=== PATIENT | male | born 1960 | race Caucasian/White ===

== ENCOUNTER 2019-12-06 22:06 | Emergency (ER) | payer OTHER, BC ==
[~2019-12-06] VITALS: Ht 175.3 cm; Wt 83.9 kg
[2019-12-06 22:20] VITALS: BP 155/88
--- NOTE | 2019-12-06 22:20 | NUR ---
ED Nurse Note: Pt walked into ED for c/o R hand swelling onset at 1200 today. Pt states he was at work and noticed the swelling. Pt denies any injury or trauma to the hand. Pt believes he may have been bitten by an insect. Swelling and redness noted to R hand, no open wound. Pt is aaox4, breathing is normal and unlabored, no cardiac distress.
[2019-12-06] MEDS ORDERED: Acetaminophen 500mg (ES) tab ORAL ONE ×2 (22:30→22:34)
[2019-12-06] MEDS ORDERED: Cephalexin 500mg cap ORAL ONE (22:30)
[2019-12-06] MEDS ORDERED: CEPHALEXIN500 MG ORAL (22:37)
[2019-12-06] MEDS ORDERED: TYLENOL EXTRA500 MG ORAL (22:37)
[2019-12-06 22:55] VITALS: BP 148/82
--- NOTE | 2019-12-06 22:55 | NUR ---
ER DISCHARGE NOTE: Patient is cleared to be discharged per ERMD, pt is aox4, on room air, with stable vital signs. pt was given dc and prescription instructions, pt was able to verbalize understanding, pt id band removed. pt is able to ambulate with steady gait. pt took all belongings.
--- NOTE | 2019-12-07 02:16 | Emergency Room Report ---
History of Present Illness General Chief Complaint: Allergic Reaction Source: Patient Present Illness HPI 59-year-old male presents the ED complaining of swelling to his right hand. Happened today at work. Believes an insect bit him. Pain is dull, 5 out of 10 , nonradiating. Feels warmth to the hand. Notes swelling. Denies fevers or chills. Denies any fall or injury. No other aggravating relieving factors. Denies any other associated symptoms Allergies: Coded Allergies: PENICILLINS (Verified Allergy, Unknown, 12/06/19) SULFA (SULFONAMIDE ANTIBIOTICS) (Verified Allergy, Unknown, 12/06/19) SULFAMETHOXAZOLE (Verified Allergy, Unknown, 12/06/19) TRIMETHOPRIM (Verified Allergy, Unknown, 12/06/19) COVID-19 Screening Contact w/high risk pt: No Recent Travel to affected area: No Experienced COVID-19 symptoms?: No COVID-19 Testing performed HEALTH CONCIERGE: No Patient History Past Medical History: none Past Surgical History: none Pertinent Family History: none Social History: Denies: smoking, alcohol use, drug use Immunizations: UTD Reviewed Nursing Documentation: PMH: Agreed; PSxH: Agreed Nursing Documentation-PMH Past Medical History: No Stated History Review of Systems All Other Systems: negative except mentioned in HPI Physical Exam Vital Signs Date Time Temp Pulse Resp B/P (MAP) Pulse Ox O2 Delivery O2 Flow Rate FiO2 12/06/19 22:09 98.2 93 18 155/88 (110) 95 12/06/19 22:20 Room Air Sp02 EP Interpretation: reviewed, normal General Appearance: no apparent distress, alert, GCS 15, non-toxic Head: normocephalic Eyes: bilateral eye normal inspection, bilateral eye PERRL ENT: normal ENT inspection Neck: normal inspection Respiratory: normal inspection Cardiovascular #1: normal inspection Gastrointestinal: normal inspection Rectal: deferred Genitourinary: no CVA tenderness Musculoskeletal: normal range of motion, swelling - erythema/swelling to dorsum R hand Neurologic: alert, motor strength/tone normal, oriented x3, sensory intact, responsive, speech normal Psychiatric: judgement/insight normal, memory normal, mood/affect normal, no suicidal/homicidal ideation Skin: no rash Lymphatic: normal inspection Medical Decision Making Diagnostic Impression: Primary Impression: Insect bite Qualified Codes: S60.561A - Insect bite (nonvenomous) of right hand, initial encounter; W57.XXXA - Bitten or stung by nonvenomous insect and other nonvenomous arthropods, initial encounter ER Course Hospital Course 59-year-old male presents to ED with redness, swelling to right hand Differential diagnoses include: Cellulitis, dermatitis, insect bite, abscess Clinical course Patient placed on stretcher. After initial history, physical exam reveals a male in no acute distress. On exam there is erythema/swelling to dorsum R hand. There is no fluctuance. There is no tenderness. Full range of motion is noted in the right hand. I discussed findings with patient. Vitals stable. Afebrile. Nontoxic- appearing. Will discharge with antibiotics. Warm compresses. Given Tylenol and Keflex in ED. Safe for discharge close outpatient follow-up. I will provide referrals Diagnosis - insect bite stable and discharged to home with prescription for Keflex. Instructed to followup with PMD. Instructed return to ED if symptoms recur or worsen Last Vital Signs Date Time Temp Pulse Resp B/P (MAP) Pulse Ox O2 Delivery O2 Flow Rate FiO2 12/06/19 22:55 98.2 91 18 148/82 98 Room Air Status: improved Disposition: HOME, SELF-CARE Condition: Stable Scripts Cephalexin* (KEFLEX*) 500 Mg Capsule 500 MG ORAL EVERY 6 HOURS for 7 Days, CAP Prov: Bradley Dill MD 12/06/19 Acetaminophen* (TYLENOL EXTRA STRENGTH*) 500 Mg Tablet 500 MG ORAL Q8H PRN for Prn Headache/Temp > 101, #30 TAB 0 Refills Prov: Bradley Dill MD 12/06/19 Referrals: NON PHYSICIAN (PCP) Raghu Arellano [facility] Departure Forms: Return to Work Return to Work Date: Dec 07, 2019 Work Restrictions: No Heavy Lifting Patient Instructions: Insect Bite, [id number] Additional Instructions: warm compresses. take antibiotics as directed. followup with your doctor Bradley Dill MD Dec 07, 2019 02:16
== END 2019-12-06 22:55 | disposition home or self-care (01) ==
LOC: EMR 22:30
DX: S60.561A Insect bite (nonvenomous) of right hand, initial encounter (principal); W57.XXXA Bitten or stung by nonvenomous insect and other nonvenomous arthropods, initial encounter; Z88.0 Allergy status to penicillin; Z88.2 Allergy status to sulfonamides; Z88.8 Allergy status to other drugs, medicaments and biological substances
CPT/HCPCS: 99282

== ENCOUNTER 2019-12-31 18:29 | Inpatient (IN) | payer BC, OTHER ==
[~2019-12-31] VITALS: Ht 175.3 cm; Wt 83.9 kg
[~2019-12-31 18:29] MED LIST: CEPHALEXIN500 MG ORAL; TYLENOL EXTRA500 MG ORAL
[2019-12-31 18:50] VITALS: BP 94/73
--- NOTE | 2019-12-31 18:53 | NUR ---
ED Nurse Note: Patient walked into ER from home c/o lower abdominal pain and unable to void and unable to have bowel movement starting today. Patient denies any nausea and vomiting. Patient presented AAO x4, VSS at this time, skin is warm to touch. patient has distended bladder.
[2019-12-31] MEDS ORDERED: Morphine Sulfate 4mg/ml Inj (IV USE ONLY) IVP ONE (19:00)
[2019-12-31] MEDS ORDERED: Omnipaque-300 100ml vial INJ PRN (19:00)
--- NOTE | 2019-12-31 19:10 | NUR ---
ED Nurse Note: iv line initiated, blood sent to lab. Pt unable to provide UA at this time. Pt requests to wait to see if pt can urinate on his own before taking further measures. GIANNA aware and approved.
--- NOTE | 2019-12-31 19:30 | NUR ---
ED Nurse Note: all medications administered, pt tolerated well no ss of distress noted. will continue to monitor.
--- NOTE | 2019-12-31 19:40 | Emergency Room Report ---
History of Present Illness General Chief Complaint: Abdominal Pain Source: Patient Present Illness HPI 59-year-old male complaining of abdominal pain. Started yesterday. States he feels constipated. Pain is dull, 8 out of 10 but nonradiating. Also states he is having trouble urinating. Status post TURP several years ago. Denies fevers or chills. Denies flank pain. Denies nausea or vomiting. No other aggravating relieving factors. Denies any other associated symptoms Allergies: Coded Allergies: PENICILLINS (Verified Allergy, Unknown, 12/06/19) SULFA (SULFONAMIDE ANTIBIOTICS) (Verified Allergy, Unknown, 12/06/19) COVID-19 Screening Contact w/high risk pt: No Recent Travel to affected area: No Experienced COVID-19 symptoms?: No COVID-19 Testing performed [employer]OPMENT INTERN: No Patient History Past Medical History: other Past Surgical History: other - TURP Pertinent Family History: none Social History: Denies: smoking, alcohol use, drug use Immunizations: UTD Reviewed Nursing Documentation: PMH: Agreed; PSxH: Agreed Nursing Documentation-PMH Hx Cardiac Problems: Yes - stents placement prostectomy Hx Hypertension: No Hx Asthma: No Hx COPD: No Review of Systems All Other Systems: negative except mentioned in HPI Physical Exam Vital Signs Date Time Temp Pulse Resp B/P (MAP) Pulse Ox O2 Delivery O2 Flow Rate FiO2 12/31/19 18:38 97.5 92 18 94/73 (80) 99 Room Air Sp02 EP Interpretation: reviewed, normal General Appearance: no apparent distress, alert, GCS 15, non-toxic Head: normocephalic, atraumatic Eyes: bilateral eye normal inspection, bilateral eye PERRL ENT: hearing grossly normal, normal pharynx, no angioedema, normal voice Neck: full range of motion, supple/symm/no masses Respiratory: chest non-tender, lungs clear, normal breath sounds, speaking full sentences Cardiovascular #1: regular rate, rhythm, no edema Cardiovascular #2: 2+ carotid (R), 2+ carotid (L), 2+ radial (R), 2+ radial (L) , 2+ dorsalis pedis (R), 2+ dorsalis pedis (L) Gastrointestinal: normal bowel sounds, soft, non-distended, no guarding, no rebound, tenderness Rectal: deferred Genitourinary: normal inspection, no CVA tenderness Musculoskeletal: back normal, normal range of motion, gait/station normal, non- tender Neurologic: alert, motor strength/tone normal, oriented x3, sensory intact, responsive, speech normal Psychiatric: judgement/insight normal, memory normal, mood/affect normal, no suicidal/homicidal ideation Reflexes: 3+ bicep (R), 3+ bicep (L), 3+ tricep (R), 3+ tricep (L), 3+ knee (R) , 3+ knee (L) Skin: no rash Lymphatic: no adenopathy Medical Decision Making Diagnostic Impression: Primary Impression: Colitis Additional Impressions: Constipation Qualified Codes: K59.00 - Constipation, unspecified Urinary retention ER Course Hospital Course 59 yoM presents with abd pain. no BM. unable to urinate differential - urinary retnion, constipation, SBO Clinical course. After initial history and physical I ordered labs, IV fluids, CT, pain meds Labs - no leukocytosis, Hb/Hct stable. electrolytes ok. CT A/P - fecal impaction, stercoral colitis noted Patient had significant urine output after straight cath. Declined Painting catheter. Discussed with surgery. Colitis secondary to fecal impaction is prone to possible perforation. Patient would benefit from admission and observation. Patient agrees. Patient given antibiotics. Given IV fluids. Given stool softeners. Dr Alberto will consult Case discussed with Dr. Armijo and he agreed to accept the patient to his service for further care and support I feel this is a highly complex case requiring extensive working including EKG/ Rhythm strip, Xray/CT/US, Blood/urine lab work, repeat exams while in ED, and administration of strong opiates/narcotics for pain control, admission to hospital or close patient follow up. Diagnosis - colitis, constiopation, urinary retention Patient admitted to hospital in serious condition Labs Test 12/31/19 19:10 12/31/19 21:18 White Blood Count 8.6 K/UL (4.8-10.8) Red Blood Count 4.68 M/UL (4.70-6.10) Hemoglobin 13.7 G/DL (14.2-18.0) Hematocrit 41.1 % (42.0-52.0) Mean Corpuscular Volume 88 FL (80-99) Mean Corpuscular Hemoglobin 29.2 PG (27.0-31.0) Mean Corpuscular Hemoglobin Concent 33.2 G/DL (32.0-36.0) Red Cell Distribution Width 13.4 % (11.6-14.8) Platelet Count 221 K/UL (150-450) Mean Platelet Volume 7.0 FL (6.5-10.1) Neutrophils (%) (Auto) 71.2 % (45.0-75.0) Lymphocytes (%) (Auto) 12.4 % (20.0-45.0) Monocytes (%) (Auto) 5.2 % (1.0-10.0) Eosinophils (%) (Auto) 10.3 % (0.0-3.0) Basophils (%) (Auto) 1.0 % (0.0-2.0) Sodium Level 138 MMOL/L (136-145) Potassium Level 4.4 MMOL/L (3.5-5.1) Chloride Level 102 MMOL/L (98-107) Carbon Dioxide Level 25 MMOL/L (21-32) Anion Gap 11 mmol/L (5-15) Blood Urea Nitrogen 13 mg/dL (7-18) Creatinine 1.5 MG/DL (0.55-1.30) Estimat Glomerular Filtration Rate 47.9 mL/min (>60) Glucose Level 161 MG/DL (74-106) Calcium Level 9.0 MG/DL (8.5-10.1) Total Bilirubin 0.3 MG/DL (0.2-1.0) Aspartate Amino Transf (AST/SGOT) 45 U/L (15-37) Alanine Aminotransferase (ALT/SGPT) 57 U/L (12-78) Alkaline Phosphatase 136 U/L (46-116) Total Protein 8.0 G/DL (6.4-8.2) Albumin 3.7 G/DL (3.4-5.0) Globulin 4.3 g/dL Albumin/Globulin Ratio 0.9 (1.0-2.7) Lipase 129 U/L (73-393) Urine Color Pale yellow Urine Appearance Clear Urine pH 6 (4.5-8.0) Urine Specific Llewellyn 1.015 (1.005-1.035) Urine Protein Negative (NEGATIVE) Urine Glucose (UA) Negative (NEGATIVE) Urine Ketones Negative (NEGATIVE) Urine Blood Negative (NEGATIVE) Urine Nitrite Negative (NEGATIVE) Urine Bilirubin Negative (NEGATIVE) Urine Urobilinogen Normal MG/DL (0.0-1.0) Urine Leukocyte Esterase Negative (NEGATIVE) CT/MRI/US Diagnostic Results CT/MRI/US Diagnostic Results : Imaging Test Ordered: CT A/P Impression Procedure: CT Abdomen Pelvis w/Contrast EXAM: CT Abdomen and Pelvis With Intravenous Contrast CLINICAL HISTORY: ABD PAIN TECHNIQUE: Axial computed tomography images of the abdomen and pelvis with intravenous contrast. CTDI is 7.7 mGy and DLP is 420 mGy-cm. One or more of the following dose reduction techniques were used: automated exposure control, adjustment of the mA and/or kV according to patient size, use of iterative reconstruction technique. COMPARISON: No relevant prior studies available. FINDINGS: Lung bases: Unremarkable. ABDOMEN: Liver: Unremarkable. Gallbladder and bile ducts: Unremarkable. Pancreas: Unremarkable. Spleen: Unremarkable. Adrenals: Unremarkable. Kidneys and ureters: Unremarkable. No obstructing stones. No hydronephrosis. Stomach and bowel: Impacted stool within the rectum and sigmoid colon measuring 6.5 cm in transverse dimension with mild adjacent fat stranding consistent with mild stercoral colitis. No pneumatosis or adjacent fluid collection. PELVIS: Appendix: No findings to suggest acute appendicitis. Bladder: Unremarkable. Reproductive: Unremarkable as visualized. ABDOMEN and PELVIS: Intraperitoneal space: Unremarkable. No free air. No significant fluid collection. Bones/joints: No acute fracture. Soft tissues: Unremarkable. Vasculature: Unremarkable. Lymph nodes: Unremarkable. IMPRESSION: Impacted stool within the rectum and sigmoid colon with mild stercoral colitis. Last Vital Signs Date Time Temp Pulse Resp B/P (MAP) Pulse Ox O2 Delivery O2 Flow Rate FiO2 12/31/19 18:50 97.5 18 94/73 99 Room Air 12/31/19 18:50 92 Status: improved Disposition: ADMITTED INPATIENT Condition: Serious Referrals: NOT CHOSEN IPA/,REFERRING (PCP) Bradley Dill MD Dec 31, 2019 19:40
--- NOTE | 2019-12-31 19:53 | NUR ---
ED Nurse Note: pt attempting to provide UA sample. Pt assisted to restroom. Pt refused use of urinal or bedside commode. Pt ambulates with steady gait, no ss of distress noted. will continue to monitor.
--- NOTE | 2019-12-31 20:00 | NUR ---
ED Nurse Note: pt unable to provide UA. pt stated that he expelled some diarrhea but stated that the amount was very little. Pt stated that he felt some relief in abdomen afterwards. pt assisted back to bed. VSS, will continue to monitor.
[2019-12-31 20:01] LABS: ANION GAP 11 mmol/L (5-15); BLOOD UREA NITROGEN 13 mg/dL (7-18); CARBON DIOXIDE 25 MMOL/L (21-32); CHLORIDE 102 MMOL/L (98-107); CREATININE 1.5 MG/DL (0.55-1.30); POTASSIUM 4.4 MMOL/L (3.5-5.1); SODIUM 138 MMOL/L (136-145)
[2019-12-31 20:03] LABS: EOSINOPHILS % (AUTO) 10.3 % (0.0-3.0); HEMATOCRIT 41.1 % (42.0-52.0); HEMOGLOBIN 13.7 G/DL (14.2-18.0); LYMPHOCYTES % (AUTO) 12.4 % (20.0-45.0); MEAN CORPUSCULAR VOLUME 88 FL (80-99); MONOCYTES % (AUTO) 5.2 % (1.0-10.0); NEUTROPHILS % (AUTO) 71.2 % (45.0-75.0); PLATELET COUNT 221 K/UL (150-450); RED BLOOD COUNT 4.68 M/UL (4.70-6.10); RED CELL DISTRIBUTION WIDTH 13.4 % (11.6-14.8); WHITE BLOOD COUNT 8.6 K/UL (4.8-10.8)
[2019-12-31 20:05] LABS: ALANINE AMINOTRANSFERASE 57 U/L (12-78); ALBUMIN 3.7 G/DL (3.4-5.0); ALBUMIN/GLOBULIN RATIO 0.9 (1.0-2.7); ALKALINE PHOSPHATASE 136 U/L (46-116); ASPARTATE AMINO TRANSFERASE 45 U/L (15-37); BILIRUBIN,TOTAL 0.3 MG/DL (0.2-1.0)
--- NOTE | 2019-12-31 20:10 | NUR ---
ED Nurse Note: Pt taken down to CT. Consent signed. Pt in stable condition, VSS no ss of distress noted.
--- NOTE | 2019-12-31 20:24 | NUR ---
ED Nurse Note: pt returned frmo CT in stable condition. will continue to monitor.
[2019-12-31 20:33] VITALS: BP 156/60
--- NOTE | 2019-12-31 20:46 | Diagnostic Imaging Report ---
EXAM: CT Abdomen and Pelvis With Intravenous Contrast CLINICAL HISTORY: ABD PAIN TECHNIQUE: Axial computed tomography images of the abdomen and pelvis with intravenous contrast. CTDI is 7.7 mGy and DLP is 420 mGy-cm. One or more of the following dose reduction techniques were used: automated exposure control, adjustment of the mA and/or kV according to patient size, use of iterative reconstruction technique. COMPARISON: No relevant prior studies available. FINDINGS: Lung bases: Unremarkable. ABDOMEN: Liver: Unremarkable. Gallbladder and bile ducts: Unremarkable. Pancreas: Unremarkable. Spleen: Unremarkable. Adrenals: Unremarkable. Kidneys and ureters: Unremarkable. No obstructing stones. No hydronephrosis. Stomach and bowel: Impacted stool within the rectum and sigmoid colon measuring 6.5 cm in transverse dimension with mild adjacent fat stranding consistent with mild stercoral colitis. No pneumatosis or adjacent fluid collection. PELVIS: Appendix: No findings to suggest acute appendicitis. Bladder: Unremarkable. Reproductive: Unremarkable as visualized. ABDOMEN and PELVIS: Intraperitoneal space: Unremarkable. No free air. No significant fluid collection. Bones/joints: No acute fracture. Soft tissues: Unremarkable. Vasculature: Unremarkable. Lymph nodes: Unremarkable. IMPRESSION: Impacted stool within the rectum and sigmoid colon with mild stercoral colitis.
--- NOTE | 2019-12-31 21:00 | NUR ---
ED Nurse Note: pt refused matthews catheter and nurse assistance. pt requested straight catheter self placement. Nurse present during pt insertion of straight catheter. 600ml of urine removed. Pt tolerated well no ss of distress noted. Pt stated that pain decreased from 8/10 to 5/10 with significant relief. Will continue to monitor.
[2019-12-31] MEDS ORDERED: Ketorolac 30mg Inj IV ONE (21:15)
[2019-12-31] MEDS ORDERED: Docusate 100mg cap ORAL ONE (21:15)
[2019-12-31 21:43] LABS: APPEARANCE,URINE CLEAR; BILIRUBIN, URINE NEGATIVE (NEGATIVE); COLOR,URINE PALE YELLOW; GLUCOSE, URINE (UA) NEGATIVE (NEGATIVE); KETONES,URINE NEGATIVE (NEGATIVE); LEUKOCYTE ESTERASE ,URINE NEGATIVE (NEGATIVE); NITRITE,URINE NEGATIVE (NEGATIVE); PH,URINE 6 (4.5-8.0); PROTEIN,URINE NEGATIVE (NEGATIVE); UROBILINOGEN,URINE NORMAL MG/DL (0.0-1.0)
--- NOTE | 2019-12-31 22:17 | NUR ---
ED Nurse Note: pt sleeping in bed. vss no ss of distress noted. will continue to monitor.
[2019-12-31 22:50] VITALS: BP 135/72
[2019-12-31 23:44] VITALS: BP 135/88
--- NOTE | 2019-12-31 23:44 | NUR ---
NURSE NOTES: Received telephone report from PINEDA Gavin (ED).
--- NOTE | 2019-12-31 23:44 | NUR ---
ED Nurse Note: Report given to PINEDA Chance on MS unit.
--- NOTE | 2020-01-01 | NUR ---
NURSE NOTES: Received pt via gurney from ED. Pt a&ox4, in room air, ambulatory, no s/s of acute distress & c/o 5/10 pain. Pt belongings checked & accounted for. Counted pt's maldonado in front of pt & witnessed by Rahul charge nurse. Pt declined to send maldonado to hospital safe. Oriented pt to hospital room. IV site intact & flushed. Provided pt with supplies. Pt unable to recall list of meds, asked pt to have someone bring or send a list of his meds from home & pt agreed. VSS. Will call Dr. Armijo for admission orders. Bed in lowest position, call light within reach. Will continue to monitor.
--- NOTE | 2020-01-01 | NUR ---
ER DISCHARGE NOTE: Patient is cleared to be discharged to MS unit per ERMD, pt is aox4, 99%on room air, with stable vital signs. pt was given dc instructions, pt was able to verbalize understanding, pt id band removed. pt is able to ambulate with steady gait. pt took all belongings. Report given to PINEDA Chance on MS unit. Pt transferred to MS unit with 1 DOLL WIG HACKLER.
[2020-01-01 00:30] VITALS: BP 130/87
--- NOTE | 2020-01-01 00:44 | NUR ---
NURSE NOTES: Dr. Armijo called back with admission orders. Carried out.
[2020-01-01] MEDS ORDERED: Lactulose 20gm/30ml UDC ORAL SCH (01:00)
[2020-01-01] MEDS ORDERED: Ketorolac 30mg Inj IM PRN (01:15)
[2020-01-01] MEDS: Lactulose 20gm/30ml UDC ORAL SCH ×3 (01:45→09:18)
[2020-01-01] MEDS ORDERED: Ketorolac 30mg Inj IV PRN (01:53)
[2020-01-01 04:00] VITALS: BP 110/77
--- NOTE | 2020-01-01 07:30 | NUR ---
NURSE NOTES: Received report from Meron RN. Patient is asleep during rounds, in no apparent distress, RR even and unlabored. Side rails upx2, bed low and locked, call light within reach.
--- NOTE | 2020-01-01 07:32 | NUR ---
HAND-OFF: Report given to PINEDA Cervantes & PINEDA Mckinley. Pt in stable condition.
[2020-01-01 08:00] VITALS: BP 135/77
[2020-01-01] MEDS ORDERED: 1/2 NS 1000ml IV ONE (08:43)
--- NOTE | 2020-01-01 11:09 | NUR ---
NURSE NOTES: Discharge order received by Dr. Armijo, reviewed home medications with MD and MD ordered to continue all home medications.
--- NOTE | 2020-01-01 11:15 | General Progress Note ---
Progress Note Progress Note [id number] Indiana Armijo MD Jan 01, 2020 11:15
[2020-01-01 12:00] VITALS: BP 131/88
--- NOTE | 2020-01-01 12:04 | NUR ---
NURSE NOTES: Seen and evaluated by and cleared to discharge. Order noted and carried out.
--- NOTE | 2020-01-01 12:28 | NUR ---
NURSE NOTES: Patient discharged in no distress. IV removed intact. Patient provided with discharge education and verbalized understanding of education. All belongings with patient on discharge. Patient escorted to private vehicle, ID band removed.
--- NOTE | 2020-01-01 14:02 | Consultation ---
History of Present Illness General Date patient seen: Jan 01, 2020 Reason for Hospitalization: Abdominal Pain Present Illness HPI 59-year-old male complaining of abdominal pain. Started yesterday. States he feels constipated. Pain is dull, 8 out of 10 but nonradiating. Also states he is having trouble urinating. Status post TURP several years ago. Denies fevers or chills. Denies flank pain. Denies nausea or vomiting. No other aggravating relieving factors. Denies any other associated symptoms. Patient states that he had difficulty urinating continued to have the pain so he came to [facility] for evaluation. CT performed labs reviewed. Case was discussed myself the emergency department and recommendations for admission for further evaluation sure appropriate bowel function. Patient seen, patient evaluate, chart reviewed. Case discussed with emergency department physician. Allergies: Coded Allergies: PENICILLINS (Verified Allergy, Unknown, 12/06/19) SULFA (SULFONAMIDE ANTIBIOTICS) (Verified Allergy, Unknown, 12/06/19) COVID-19 Screening Contact w/high risk pt: No Recent Travel to affected area: No Experienced COVID-19 symptoms?: No Medication History Scheduled Cephalexin* (Keflex*), 500 MG ORAL EVERY 6 HOURS Scheduled PRN Acetaminophen* (Tylenol Extra Strength*), 500 MG ORAL Q8H PRN for Prn Headache/ Temp > 101 Patient History History Provided By: Patient, Medical Record, PMD Healthcare decision maker Resuscitation status Advanced Directive on File Past Medical/Surgical History Past Medical/Surgical History: (1) Insect bite (2) Stericoral Colitis Review of Systems Review of Symptoms General ROS: no weight loss or fever Psychological ROS: no depression or mood changes, no memory loss Ophthalmic ROS: no visual changes or eye irritation ENT ROS: no nasal congestion, hearing loss, dizziness Allergy and Immunology ROS: no allergic symptoms or urticaria Hematological and Lymphatic ROS: no swollen glands, unusual bleeding or bruising Endocrine ROS: no polyuria, polydipsia, weight changes, temperature intolerance Respiratory ROS: no cough, shortness of breath, or wheezing Cardiovascular ROS: no chest pain or dyspnea on exertion Gastrointestinal ROS: denies abdominal pain, bright red blood in stool. Musculoskeletal ROS: no myalgias or arthralgias Neurological ROS: no TIA or stroke symptoms Dermatological ROS: no new or changing skin lesions, rashes or pruritis Physical Exam Physical Exam General appearance: alert, cooperative, no distress, appears stated age Head: Normocephalic, without obvious abnormality, atraumatic Eyes: conjunctivae/corneas clear. PERRL, EOM's intact. Fundi benign Throat: Lips, mucosa, and tongue normal. Teeth and gums normal Neck: supple, symmetrical, trachea midline, no adenopathy, thyroid: not enlarged, symmetric, no tenderness/mass/nodules, no carotid bruit and no JVD Lungs: clear to auscultation bilaterally Heart: regular rate and rhythm, S1, S2 normal, no murmur, click, rub or gallop Abdomen: soft, non-tender. Bowel sounds normal. No masses, no organomegaly Extremities: extremities normal, atraumatic, no cyanosis or edema Pulses: 2+ and symmetric Skin: Skin color, texture, turgor normal. No rashes or lesions Neurologic: Grossly normal Last 24 Hour Vital Signs Date Time Temp Pulse Resp B/P (MAP) Pulse Ox O2 Delivery O2 Flow Rate FiO2 01/01/20 12:00 98.1 90 16 131/88 (102) 98 01/01/20 09:00 Room Air 01/01/20 08:00 98.2 135/77 (96) 97 01/01/20 04:14 Room Air 01/01/20 04:00 98.2 88 16 110/77 (88) 96 01/01/20 00:30 97.8 72 18 130/87 (101) 98 01/01/20 00:00 97.5 75 18 135/88 99 Room Air 12/31/19 23:44 97.5 75 18 135/88 99 Room Air 12/31/19 22:50 97.5 74 16 135/72 99 Room Air 12/31/19 21:57 97.5 12/31/19 20:33 97.5 83 18 156/60 99 Room Air 12/31/19 20:02 97.5 12/31/19 18:50 97.5 18 94/73 99 Room Air 12/31/19 18:50 92 18 Room Air 12/31/19 18:38 97.5 92 18 94/73 (80) 99 Room Air Intake and Output 12/31/19 01/01/20 19:00 07:00 Intake Total 1 ml 450 ml Output Total 600 ml Balance 1 ml -150 ml Intake Oral 1 ml 100 ml IV Total 350 ml Output Urine Total 600 ml # Voids 1 Laboratory Tests Test 12/31/19 19:10 12/31/19 21:18 White Blood Count 8.6 K/UL (4.8-10.8) Red Blood Count 4.68 M/UL (4.70-6.10) L Hemoglobin 13.7 G/DL (14.2-18.0) L Hematocrit 41.1 % (42.0-52.0) L Mean Corpuscular Volume 88 FL (80-99) Mean Corpuscular Hemoglobin 29.2 PG (27.0-31.0) Mean Corpuscular Hemoglobin Concent 33.2 G/DL (32.0-36.0) Red Cell Distribution Width 13.4 % (11.6-14.8) Platelet Count 221 K/UL (150-450) Mean Platelet Volume 7.0 FL (6.5-10.1) Neutrophils (%) (Auto) 71.2 % (45.0-75.0) Lymphocytes (%) (Auto) 12.4 % (20.0-45.0) L Monocytes (%) (Auto) 5.2 % (1.0-10.0) Eosinophils (%) (Auto) 10.3 % (0.0-3.0) H Basophils (%) (Auto) 1.0 % (0.0-2.0) Sodium Level 138 MMOL/L (136-145) Potassium Level 4.4 MMOL/L (3.5-5.1) Chloride Level 102 MMOL/L (98-107) Carbon Dioxide Level 25 MMOL/L (21-32) Anion Gap 11 mmol/L (5-15) Blood Urea Nitrogen 13 mg/dL (7-18) Creatinine 1.5 MG/DL (0.55-1.30) H Estimat Glomerular Filtration Rate 47.9 mL/min (>60) Glucose Level 161 MG/DL (74-106) H Calcium Level 9.0 MG/DL (8.5-10.1) Total Bilirubin 0.3 MG/DL (0.2-1.0) Aspartate Amino Transf (AST/SGOT) 45 U/L (15-37) H Alanine Aminotransferase (ALT/SGPT) 57 U/L (12-78) Alkaline Phosphatase 136 U/L (46-116) H Total Protein 8.0 G/DL (6.4-8.2) Albumin 3.7 G/DL (3.4-5.0) Globulin 4.3 g/dL Albumin/Globulin Ratio 0.9 (1.0-2.7) L Lipase 129 U/L (73-393) Urine Color Pale yellow Urine Appearance Clear Urine pH 6 (4.5-8.0) Urine Specific [place] 1.015 (1.005-1.035) Urine Protein Negative (NEGATIVE) Urine Glucose (UA) Negative (NEGATIVE) Urine Ketones Negative (NEGATIVE) Urine Blood Negative (NEGATIVE) Urine Nitrite Negative (NEGATIVE) Urine Bilirubin Negative (NEGATIVE) Urine Urobilinogen Normal MG/DL (0.0-1.0) Urine Leukocyte Esterase Negative (NEGATIVE) Height (Feet): 5 Height (Inches): 9.00 Weight (Pounds): 185 Assessment/Plan Problem List: (1) Insect bite ICD Codes: W57.XXXA - Bitten or stung by nonvenomous insect and other nonvenomous arthropods, initial encounter SNOMED: 165310821, 601536589 (2) Stericoral Colitis (3) Colitis Assessment & Plan: 59-year-old male with constipation and stercoral colitis urinary retention. Patient was given IV hydration stool softener and therapy and since has had bowel movement and is urinating again without complication. Patient states he feels much better since admission and can now have bowel movements and urinate without problems. No nausea vomiting fever chills. Significantly improved. Plan for discharge today. Office follow-up information given for patient. Post hospital care and diet instructions given to patient. Hydration. Soft diet. Thank you for let me participate in patient 's care. Liver: Unremarkable. Gallbladder and bile ducts: Unremarkable. Pancreas: Unremarkable. Spleen: Unremarkable. Adrenals: Unremarkable. Kidneys and ureters: Unremarkable. No obstructing stones. No hydronephrosis. Stomach and bowel: Impacted stool within the rectum and sigmoid colon measuring 6.5 cm in transverse dimension with mild adjacent fat stranding consistent with mild stercoral colitis. No pneumatosis or adjacent fluid collection. PELVIS: Appendix: No findings to suggest acute appendicitis. Bladder: Unremarkable. Reproductive: Unremarkable as visualized. ABDOMEN and PELVIS: Intraperitoneal space: Unremarkable. No free air. No significant fluid collection. Bones/joints: No acute fracture. Soft tissues: Unremarkable. Vasculature: Unremarkable. Lymph nodes: Unremarkable. IMPRESSION: Impacted stool within the rectum and sigmoid colon with mild stercoral colitis. ICD Codes: K52.9 - Noninfective gastroenteritis and colitis, unspecified SNOMED: 85600080 NinomallorievyAudrey wongya Jan 01, 2020 14:02
--- NOTE | 2020-01-01 22:44 | History and Physical Report ---
DATE OF ADMISSION: 12/31/2019 CHIEF COMPLAINT: Abdominal pain. HISTORY OF PRESENT ILLNESS: The patient is a 59-year-old man with past medical history significant for hypertension, history of BPH, history of TURP, who presented to [facility] complaining of 5-day history of constipation, complaining of diffuse abdominal pain, 8/10, nonradiating, and trouble urinating. The patient had a straight catheter in the ER and the blood test was done, was normal, but in the ER, the patient upon arrival was febrile, blood pressure was 94/73, had a CT of the abdomen, which revealed fecal impaction as well as stercoral colitis. The patient for that symptom was admitted, was started on IV fluid. The patient was able to do the urination without any complaint. Also, the patient was started on lactulose and moved his bowels twice prior to my visit this morning. He denies having any nausea or vomiting and his abdominal pain has completely resolved. PAST MEDICAL HISTORY: History of TURP, history of hypertension, and history of BPH. ALLERGIES: The patient is allergic to penicillin and sulfa. SOCIAL HISTORY: There is no history of tobacco, alcohol, or drug use. FAMILY HISTORY: Noncontributory. REVIEW OF SYSTEMS: Basically, all 14 systems were reviewed, at this point is negative. PHYSICAL EXAMINATION: VITAL SIGNS: The patient has a temperature of 98, blood pressure of 110/77, and pulse rate of 88. HEAD AND NECK: No JVP. No LAD. No thyromegaly. Extraocular movements intact. Pupils are reactive to light and accommodation. LUNGS: Clear to auscultation. CARDIAC: Regular rate and rhythm. S1 and S2. No murmur. No rub. ABDOMEN: Soft, nontender, and nondistended. EXTREMITIES: No edema. No clubbing. No cyanosis. LABORATORY AND DIAGNOSTIC DATA: The patient has WBC count of 8.6, hemoglobin of 13.7, hematocrit of 41, and platelet count of 220,000. Chemistry revealed sodium of 138, potassium of 4.4, 102 chloride, 25 bicarbonate, BUN 13, and creatinine of 1.5. Calcium is within normal limits. Alkaline phosphatase of 136, AST also with normal limits. UA basically was negative. ASSESSMENT: 1. Fecal impaction and severe abdominal pain. 2. Chronic kidney disease. 3. Hypertension. 4. Urinary retention. PLAN: Plan for the patient to prepare to be discharged, Colace 100 mg p.o. b.i.d. Outpatient visit with myself in 5 days. I would repeat the BNP in the office to evaluate creatinine and probably repeat ultrasound of the kidney to rule out obstruction. The patient after my visit will be cleared to discharge and follow up as an outpatient. Activity is going to be as tolerated. Diet is going to be 2 g sodium diet. Indiana Armijo M.D. DR: RENAN JOB#: [id number] CC:
--- NOTE | 2020-01-03 14:35 | Discharge Summary ---
Discharge Summary Discharge Summary _ DATE OF ADMISSION: 12/31/2019 DATE OF DISCHARGE: 01/01/2020 DISCHARGED BY: Dr Armijo REASON FOR ADMISSION: 59 years old male with past medical history of chronic kidney disease, hypertension, TURP few years ago, presented with complaint of abdominal pain for 1 day. Patient reported being constipated. Pain reported as dull, nonradiating, 8 out of 10. Patient also reported difficulty urinating. He denied fever and chills. He denied flank pain. He denied nausea and vomiting. Upon evaluation vital signs were stable. Laboratory work-up revealed no leukocytosis, stable hemoglobin, hematocrit. Stable electrolytes. CT of the abdomen pelvis revealed fecal impaction and stercoral colitis. Patient was straight catheterized with significant urine output. Patient declined Painting catheter. Patient received empiric antibiotic , started on the IV fluids. Patient also received stool softener. Surgery consult was requested due to risk of possible perforation secondary to fecal impaction. Patient subsequently admitted to medical surgical floor. CONSULTANTS: surgery Dr. Escobar HOSPITAL COURSE: Patient admitted and started on the IV fluids. Bowel regimen instituted. Pain management was addressed. Antiemetic were on board as needed. Surgeon seen and evaluated. At that time patient already had a bowel movement and was able to urinate without difficulties. Patient denied nausea and vomiting. No fever or chills. Patient reported significant improvement. Office follow-up information provided for patient. Patient was encouraged adequate hydration and continue with bowel regimen. Patient clinically stabilized and was ready for discharge home. Due to rapid and unexpected improvement in patient condition, patient was discharged in 1 day. FINAL DIAGNOSES: Stercoral colitis Fecal impaction with severe abdominal pain Hypertension Chronic kidney disease Urinary retention- resolved DISCHARGE MEDICATIONS: See Medication Reconciliation list. DISCHARGE INSTRUCTIONS: Patient was discharged home. Patient to follow-up with primary care provider in 1 week. Patient to follow-up with a surgeon as advised a. I have been assigned to dictate discharge summary for this account. I was not involved in the patient's management. Yajaira Gama NP Jan 03, 2020 14:34
--- NOTE | 2020-01-03 15:14 | NUR ---
*-* INSURANCE *-* ALL AVAILABLE CLINICALS HAVE BEEN FAXED TO: BS Ref# [id number] ph#[phone] fax#[phone] & [facility] ph#[phone] fax# [phone]
--- NOTE | 2020-01-04 12:33 | NUR ---
*-* INSURANCE *-* DISCHARGE SUMMARY HAS BEEN FAXE: Ref# [id number] ph#[phone] fax#[phone] & [facility] ph#[phone] fax# [phone]
== END 2020-01-01 12:30 | disposition home or self-care (01) | DRG 392 ==
LOC: EMR 19:08 → 3E 21:43 → EDBEDREQ 23:22
DX: K52.89 Other specified noninfective gastroenteritis and colitis (principal); K56.41 Fecal impaction; R33.9 Retention of urine, unspecified; I12.9 Hypertensive chronic kidney disease with stage 1 through stage 4 chronic kidney disease, or unspecified chronic kidney disease; N18.9 Chronic kidney disease, unspecified; Z88.0 Allergy status to penicillin; Z88.2 Allergy status to sulfonamides
CPT/HCPCS: 36415; 74177; 80053; 81003; 83690; 85025; 96365; 96375; 99285

== ENCOUNTER 2020-09-07 21:46 | Inpatient (IN) | payer BC, OTHER ==
[~2020-09-07] VITALS: Ht 175.3 cm; Wt 77.6 kg
[2020-09-07] MEDS ORDERED: Nitroglycerin Subl 0.4mg tab SL PRN (22:15)
[2020-09-07] MEDS ORDERED: Nitroglycerin 2% oint pkt TOPIC ONE (22:15)
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
[2020-09-07 22:53] VITALS: BP 109/69
[2020-09-07 22:59] LABS: BASOPHILS % (AUTO) 1.2 % (0.0-2.0); EOSINOPHILS % (AUTO) 2.1 % (0.0-3.0); HEMATOCRIT 35.4 % (42.0-52.0); HEMOGLOBIN 12.2 G/DL (14.2-18.0); LYMPHOCYTES % (AUTO) 19.1 % (20.0-45.0); MEAN CORPUSCULAR VOLUME 85 FL (80-99); MONOCYTES % (AUTO) 8.9 % (1.0-10.0); NEUTROPHILS % (AUTO) 68.8 % (45.0-75.0); PLATELET COUNT 442 K/UL (150-450); RED BLOOD COUNT 4.18 M/UL (4.70-6.10); RED CELL DISTRIBUTION WIDTH 14.4 % (11.6-14.8); WHITE BLOOD COUNT 6.2 K/UL (4.8-10.8)
[2020-09-07 23:05] LABS: APPEARANCE,URINE CLEAR; BILIRUBIN, URINE NEGATIVE (NEGATIVE); GLUCOSE, URINE (UA) NEGATIVE (NEGATIVE); KETONES,URINE NEGATIVE (NEGATIVE); LEUKOCYTE ESTERASE ,URINE NEGATIVE (NEGATIVE); NITRITE,URINE NEGATIVE (NEGATIVE); PH,URINE 5 (4.5-8.0); PROTEIN,URINE NEGATIVE (NEGATIVE); UROBILINOGEN,URINE NORMAL MG/DL (0.0-1.0)
[2020-09-07 23:07] LABS: ALANINE AMINOTRANSFERASE 84 U/L (12-78); ALBUMIN 3.1 G/DL (3.4-5.0); ALBUMIN/GLOBULIN RATIO 0.6 (1.0-2.7); ALKALINE PHOSPHATASE 184 U/L (46-116); ANION GAP 10 mmol/L (5-15); ASPARTATE AMINO TRANSFERASE 47 U/L (15-37); BILIRUBIN,TOTAL 0.4 MG/DL (0.2-1.0); BLOOD UREA NITROGEN 21 mg/dL (7-18); CALCIUM 9.8 MG/DL (8.5-10.1); CARBON DIOXIDE 24 MMOL/L (21-32); CHLORIDE 102 MMOL/L (98-107); CREATINE KINASE 88 U/L (26-308); CREATININE 1.3 MG/DL (0.55-1.30); POTASSIUM 4.1 MMOL/L (3.5-5.1); SODIUM 136 MMOL/L (136-145)
[2020-09-07 23:09] LABS: COLOR,URINE YELLOW
[2020-09-07] MEDS ORDERED: Morphine Sulfate 2mg/ml Inj IVP ONE (23:15)
[2020-09-07] MEDS ORDERED: Metoprolol Tartrate 5mg/5ml Inj IVP STA (23:18)
[2020-09-07] MEDS ORDERED: Enoxaparin 100mg Inj SUBQ STA (23:18)
[2020-09-08 00:53] VITALS: BP 115/76
--- NOTE | 2020-09-08 03:09 | Diagnostic Imaging Report ---
EXAM: CT Abdomen and Pelvis With Intravenous Contrast CLINICAL HISTORY: FLANK TECHNIQUE: Axial computed tomography images of the abdomen and pelvis with intravenous contrast. CTDI is 6.1 mGy and DLP is 345.7 mGy-cm. One or more of the following dose reduction techniques were used: automated exposure control, adjustment of the mA and/or kV according to patient size, use of iterative reconstruction technique. COMPARISON: 12/31/19 FINDINGS: Lung bases: Bibasilar atelectasis. Heart: Coronary artery calcification. ABDOMEN: Liver: Unremarkable. No mass. Gallbladder and bile ducts: Contracted gallbladder. No calcified stones. No ductal dilation. Pancreas: Unremarkable. No mass. No ductal dilation. Spleen: Unremarkable. No splenomegaly. Adrenals: Unremarkable. No mass. Kidneys and ureters: Small left renal lesion, unchanged. Nonobstructing renal calculi bilaterally. Stomach and bowel: Moderate to large retained stool in the ascending and transverse colon. No mucosal thickening. PELVIS: Appendix: No findings to suggest acute appendicitis. Bladder: Unremarkable. No mass. Reproductive: Unremarkable as visualized. ABDOMEN and PELVIS: Intraperitoneal space: Unremarkable. No free air. No significant fluid collection. Bones/joints: No acute fracture. No dislocation. Soft tissues: Small fat-containing left inguinal hernia. Vasculature: Unremarkable. No abdominal aortic aneurysm. Lymph nodes: Small retroperitoneal lymph nodes, unchanged and nonspecific. IMPRESSION: 1. Nonobstructing bilateral renal calculi. 2. Nonspecific bowel gas pattern with moderate to large retained stool. 3. No free fluid or free air.
[2020-09-08 04:00] VITALS: BP 107/62
[2020-09-08] MEDS ORDERED: Morphine Sulfate 2mg/ml Inj IVP PRN (05:30)
[2020-09-08] MEDS ORDERED: Nitroglycerin Subl 0.4mg tab SL PRN (05:30)
[2020-09-08] MEDS ORDERED: HYDROcodone/Acetamin 5/325 tab ORAL PRN (05:30)
[2020-09-08] MEDS ORDERED: Heparin 25,000u/D5W 500ml 500 ML IV SCH ×2 (06:00→14:30)
[2020-09-08 06:02] LABS: BASOPHILS % (AUTO) 0.9 % (0.0-2.0); EOSINOPHILS % (AUTO) 3.2 % (0.0-3.0); HEMATOCRIT 35.5 % (42.0-52.0); HEMOGLOBIN 11.6 G/DL (14.2-18.0); LYMPHOCYTES % (AUTO) 24.9 % (20.0-45.0); MEAN CORPUSCULAR VOLUME 86 FL (80-99); MONOCYTES % (AUTO) 10.4 % (1.0-10.0); NEUTROPHILS % (AUTO) 60.7 % (45.0-75.0); PLATELET COUNT 390 K/UL (150-450); RED BLOOD COUNT 4.15 M/UL (4.70-6.10); RED CELL DISTRIBUTION WIDTH 13.1 % (11.6-14.8); WHITE BLOOD COUNT 5.8 K/UL (4.8-10.8)
[2020-09-08] MEDS ORDERED: Heparin 5000 units/ml inj IV SCH ×2 (06:15→14:30)
[2020-09-08 06:30] LABS: CHOLESTEROL 147 MG/DL (< 200); HDL CHOLESTEROL 20 MG/DL (40-60); TRIGLYCERIDES 196 MG/DL (30-150)
[2020-09-08 08:00] VITALS: BP 116/65
[2020-09-08] MEDS: Aspirin EC 81mg tab ORAL SCH (09:35)
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
[2020-09-08 12:00] VITALS: BP 114/64
--- NOTE | 2020-09-08 14:14 | History & Physical ---
History and Physical History & Physicial Shan Silva MD Sep 08, 2020 14:14
--- NOTE | 2020-09-08 15:06 | Diagnostic Imaging Report ---
Indication: Chest pain Technique: One view of the chest Comparison: none Findings: Lungs and pleural spaces are clear. Heart size is normal. Impression: No acute process
[2020-09-08 15:51] VITALS: BP 121/75
--- NOTE | 2020-09-08 16:01 | Cardiac Electrophysiology PN ---
Subjective Subjective [id number] Objective Last 24 Hour Vital Signs Date Time Temp Pulse Resp B/P (MAP) Pulse Ox O2 Delivery O2 Flow Rate FiO2 09/08/20 15:51 98.6 66 20 121/75 (90) 99 09/08/20 12:00 98.0 70 18 114/64 (81) 98 09/08/20 12:00 85 09/08/20 09:35 81 116/65 09/08/20 09:00 Room Air 09/08/20 08:00 97.0 80 18 116/65 (82) 96 09/08/20 08:00 81 09/08/20 04:00 89 09/08/20 04:00 98.1 76 18 107/62 (77) 86 09/08/20 03:41 89 09/08/20 03:35 Room Air 09/08/20 03:35 98.2 79 17 124/72 98 Room Air 09/08/20 00:53 98.3 98 19 115/76 97 Room Air 09/07/20 23:24 100 109/69 09/07/20 22:53 98.3 100 17 109/69 97 Room Air 09/07/20 22:22 134/76 09/07/20 22:22 134/76 09/07/20 22:00 100 19 Room Air 09/07/20 21:58 97.5 103 18 134/76 (95) 96 Intake and Output 09/07/20 09/08/20 19:00 07:00 Intake Total 400 ml Output Total 50 ml Balance 350 ml Intake Oral 400 ml Output Urine Total 50 ml Laboratory Tests Test 09/07/20 22:30 09/08/20 05:00 09/08/20 05:55 09/08/20 13:30 White Blood Count 6.2 K/UL (4.8-10.8) 5.8 K/UL (4.8-10.8) Red Blood Count 4.18 M/UL (4.70-6.10) L 4.15 M/UL (4.70-6.10) L Hemoglobin 12.2 G/DL (14.2-18.0) L 11.6 G/DL (14.2-18.0) L Hematocrit 35.4 % (42.0-52.0) L 35.5 % (42.0-52.0) L Mean Corpuscular Volume 85 FL (80-99) 86 FL (80-99) Mean Corpuscular Hemoglobin 29.3 PG (27.0-31.0) 28.0 PG (27.0-31.0) Mean Corpuscular Hemoglobin Concent 34.5 G/DL (32.0-36.0) 32.7 G/DL (32.0-36.0) Red Cell Distribution Width 14.4 % (11.6-14.8) 13.1 % (11.6-14.8) Platelet Count 442 K/UL (150-450) 390 K/UL (150-450) Mean Platelet Volume 6.2 FL (6.5-10.1) L 5.7 FL (6.5-10.1) L Neutrophils (%) (Auto) 68.8 % (45.0-75.0) 60.7 % (45.0-75.0) Lymphocytes (%) (Auto) 19.1 % (20.0-45.0) L 24.9 % (20.0-45.0) Monocytes (%) (Auto) 8.9 % (1.0-10.0) 10.4 % (1.0-10.0) H Eosinophils (%) (Auto) 2.1 % (0.0-3.0) 3.2 % (0.0-3.0) H Basophils (%) (Auto) 1.2 % (0.0-2.0) 0.9 % (0.0-2.0) Prothrombin Time 11.1 SEC (9.30-11.50) Prothromb Time International Ratio 1.0 (0.9-1.1) Activated Partial Thromboplast Time 27 SEC (23-33) 29 SEC (23-33) 34 SEC (23-33) H Urine Color Yellow Urine Appearance Clear Urine pH 5 (4.5-8.0) Urine Specific [place] 1.025 (1.005-1.035) Urine Protein Negative (NEGATIVE) Urine Glucose (UA) Negative (NEGATIVE) Urine Ketones Negative (NEGATIVE) Urine Blood Negative (NEGATIVE) Urine Nitrite Negative (NEGATIVE) Urine Bilirubin Negative (NEGATIVE) Urine Urobilinogen Normal MG/DL (0.0-1.0) Urine Leukocyte Esterase Negative (NEGATIVE) Sodium Level 136 MMOL/L (136-145) Potassium Level 4.1 MMOL/L (3.5-5.1) Chloride Level 102 MMOL/L (98-107) Carbon Dioxide Level 24 MMOL/L (21-32) Anion Gap 10 mmol/L (5-15) Blood Urea Nitrogen 21 mg/dL (7-18) H Creatinine 1.3 MG/DL (0.55-1.30) Estimat Glomerular Filtration Rate 56.3 mL/min (>60) Glucose Level 108 MG/DL (74-106) H Calcium Level 9.8 MG/DL (8.5-10.1) Total Bilirubin 0.4 MG/DL (0.2-1.0) Aspartate Amino Transf (AST/SGOT) 47 U/L (15-37) H Alanine Aminotransferase (ALT/SGPT) 84 U/L (12-78) H Alkaline Phosphatase 184 U/L (46-116) H Total Creatine Kinase 88 U/L (26-308) Troponin I 0.074 ng/mL (0.000-0.056) 0.076 ng/mL (0.000-0.056) 0.059 ng/mL (0.000-0.056) Pro-B-Type Natriuretic Peptide 452 pg/mL (0-125) H Total Protein 8.4 G/DL (6.4-8.2) H Albumin 3.1 G/DL (3.4-5.0) L Globulin 5.3 g/dL Albumin/Globulin Ratio 0.6 (1.0-2.7) L Urine Opiates Screen Positive (NEGATIVE) H Urine Barbiturates Screen Negative (NEGATIVE) Phencyclidine (PCP) Screen Negative (NEGATIVE) Urine Amphetamines Screen Positive (NEGATIVE) H Urine Benzodiazepines Screen Negative (NEGATIVE) Urine Cocaine Screen Negative (NEGATIVE) Urine Marijuana (THC) Screen Negative (NEGATIVE) Triglycerides Level 196 MG/DL (30-150) H Cholesterol Level 147 MG/DL (< 200) LDL Cholesterol 104 mg/dL (<100) H HDL Cholesterol 20 MG/DL (40-60) L Cholesterol/HDL Ratio 7.4 (3.3-4.4) H Thyroid Stimulating Hormone (TSH) 4.252 uiU/mL (0.358-3.740) Rafael Desai MD Sep 08, 2020 16:01
[2020-09-08 20:00] VITALS: BP 95/48
--- NOTE | 2020-09-08 20:44 | History and Physical Report ---
DATE OF ADMISSION: 09/07/2020 CHIEF COMPLAINT: Chest pain. HISTORY OF PRESENT ILLNESS: This is a 60-year-old gentleman with past medical history significant for hypertension, history of coronary artery disease status post 7 stent placement, who presented to the emergency department complaining about chest pain associated with the right flank pain. The patient stated the chest pain has been going on for past 2 weeks. He had a heart attack at outside hospital, most likely [facility]. He underwent cardiac catheterization and placed multiple stents. He ended up signing out once he has a second opinion. He said that he has some problems with his insurance. He had trouble filing his medication but able to take blood thinner twice a day. Shortly after initial evaluation in the emergency department, the patient was admitted to the hospital with chest pain, possible acute coronary syndrome. PAST MEDICAL HISTORY AND PAST SURGICAL HISTORY: As above history of coronary artery disease with status post of PTCA with stent placement x7, history of hypertension. MEDICATIONS: At home, please refer to medication reconciliation. ALLERGIES: Plavix, penicillin, sulfa. SOCIAL HISTORY: The patient currently smokes one pack of cigarettes, 20 years pack smoker. Denies any alcohol or substance abuse. FAMILY HISTORY: Father with history of heart disease. REVIEW OF SYSTEMS: Mostly as above. Denies any dysuria, frequency, hematuria. Denies any hemoptysis or hematochezia. Denies any bright red blood per rectum. PHYSICAL EXAMINATION: VITAL SIGNS: On admission, temperature 97.5, pulse of 103, respirations 18, and blood pressure 134/76. GENERAL: The patient awake, responsive no acute distress. HEAD AND NECK: Pupils are equal and reactive to light. Extraocular movements intact. Neck was supple. No JVD. LUNGS: Good air entry. No wheezing or rhonchi. HEART: S1 and S2. Regular rhythm. No murmur or gallops. ABDOMEN: Soft, nondistended, nontender. Positive bowel sounds. EXTREMITIES: No cyanosis, clubbing, or edema. NEUROLOGIC: Cranial nerves II through XII grossly intact. Motor is 5/5 in all extremities. Gait is not assessed due to patient's status. RECTAL: Refused and deferred. PSYCHIATRIC: Mood and affect is intact. LABORATORY AND DIAGNOSTIC DATA: Laboratory on admission, WBC of 6.2, hemoglobin 12, hematocrit 35, platelet is 442. Sodium 136, potassium 4.1, chloride 102, bicarb 24, BUN 21, creatinine 1.3. AST of 47, ALT of 84, alkaline phosphatase 184. First troponin 0.074, second troponin . The patient's triglycerides 196, cholesterol is 147, ALT of 104. TSH is 4.252. PT of 11, INR 1.1, PTT of 27. Urinalysis is negative. Urine drug screen positive for opioids as well as amphetamine. Chest x-ray, no acute process. The patient had a CT of the abdomen pelvic shows that the nonobstructive bilateral renal calculi, nonspecific bilateral gas pattern with moderate to large retained stool. No free fluid or free air. ASSESSMENT: 1. Chest pain, possible acute coronary syndrome. 2. Polysubstance abuse including amphetamine. 3. History of coronary artery disease, multiple PTCA with stent placement. 4. Hypertension. 5. Constipation. PLAN: Admit the patient to telemetry. We will follow up with Dr. Desai consultation with cardiology. We will follow up with serial cardiac enzymes. Heparin drip per pharmacy. Start the patient on Lipitor 40 mg. Code status is Full code. We will reconsider to follow up with 2D echo. Shan Silva M.D. DR: Andrew JOB#: [id number] CC:
--- NOTE | 2020-09-08 21:14 | Consultation ---
DATE OF CONSULTATION: 09/08/2020 CARDIOLOGY CONSULTATION CONSULTING PHYSICIAN: Rafael Desai MD REFERRING PHYSICIAN: Shan Silva MD REASON FOR CONSULTATION: Chest pain. HISTORY OF PRESENT ILLNESS: The patient is a 60-year-old gentleman with history of hypertension, coronary artery disease, history of prior stent and most recent one 6 months ago at [facility], who is usually followed by DrMichael for the changes of insurance. The patient presented to the emergency room with chest pressure and also right flank pain. The patient was told two weeks ago to go to Hospital and they wanted to do cardiac catheterization and put a stent. The patient states he had 7 stents placed before and he was signing out and wanted a second opinion. He had trouble filling his medications, was able to take his blood thinners. The patient states that he has allergic reaction to Plavix. He also has not had bowel movement for a week even though he had colitis in the past. The patient admits to using cocaine, the last cocaine being last Friday. His EKG showed old inferior wall infarct and troponin was elevated and started on heparin drip. REVIEW OF SYSTEMS: Negative other than what was mentioned in history of present illness. PAST MEDICAL HISTORY: As mentioned above. FAMILY HISTORY: Noncontributory. SOCIAL HISTORY: History of active cocaine use. PHYSICAL EXAMINATION: VITAL SIGNS: Show blood pressure of 121/75, pulse 66, respirations 20, temperature 98.6. HEAD AND NECK: Shows no JVD. LUNGS: Coarse rhonchi. CARDIOVASCULAR: Shows regular S1 and S2 with no gallop or murmur. ABDOMEN: Soft. EXTREMITIES: No pitting edema. LABORATORY AND DIAGNOSTIC DATA: Labs show white count of 5.9, hemoglobin 11.0, hematocrit 35.5, platelet count of 390. Sodium 132, potassium 4.1, BUN of 21, creatinine 1.2. Troponin 0.07, 0.07, and 0.06. BNP is 452. His urine-tox screen is positive for amphetamine and opiates. ASSESSMENT AND PLAN: 1. Igr-TO-[id number] myocardial infarction. This patient has history of cocaine as well as active methamphetamine use. Troponin levels are flat. EKG does not have any ST elevation. In view of history of cocaine use, avoid using beta-melly. Continue aspirin and Lipitor. He was already started on metoprolol 25 mg b.i.d. and urine-tox screen currently is negative for cocaine even though he has a history of use before and was positive for methamphetamine. We will get an echocardiogram and repeat EKG for further evaluation. Since his troponin levels are coming down, discontinue heparin. 2. Hypertension. 3. Polysubstance abuse including methamphetamine. Of note, the patient's echocardiogram showed ejection fraction of 60%. Thank you very much for allowing me to participate in the care of this patient. Please do not hesitate to contact me if you have any questions regarding my evaluation. Rafael Desai M.D. DR: BLANCA JOB#: [id number] CC:
[2020-09-08] MEDS: Atorvastatin 20mg tab ORAL SCH (21:41)
[2020-09-08] MEDS: Heparin 5000 units/ml inj SUBQ SCH (21:45)
[2020-09-09] VITALS: BP 129/75
[2020-09-09 04:00] VITALS: BP 106/63
[2020-09-09] MEDS: Heparin 5000 units/ml inj SUBQ SCH ×3 (05:58→22:19)
[2020-09-09 08:00] VITALS: BP 131/72
[2020-09-09] MEDS: Aspirin EC 81mg tab ORAL SCH (08:33)
[2020-09-09 09:49] LABS: EOSINOPHILS % (AUTO) 1.2 % (0.0-3.0); HEMATOCRIT 38.6 % (42.0-52.0); HEMOGLOBIN 12.5 G/DL (14.2-18.0); LYMPHOCYTES % (AUTO) 16.3 % (20.0-45.0); MEAN CORPUSCULAR VOLUME 87 FL (80-99); MONOCYTES % (AUTO) 8.4 % (1.0-10.0); NEUTROPHILS % (AUTO) 72.3 % (45.0-75.0); PLATELET COUNT 363 K/UL (150-450); RED BLOOD COUNT 4.46 M/UL (4.70-6.10); RED CELL DISTRIBUTION WIDTH 13.4 % (11.6-14.8); WHITE BLOOD COUNT 5.1 K/UL (4.8-10.8)
[2020-09-09 10:52] LABS: ALANINE AMINOTRANSFERASE 64 U/L (12-78); ALBUMIN/GLOBULIN RATIO 0.7 (1.0-2.7); ALKALINE PHOSPHATASE 192 U/L (46-116); ANION GAP 8 mmol/L (5-15); ASPARTATE AMINO TRANSFERASE 32 U/L (15-37); BILIRUBIN,TOTAL 0.4 MG/DL (0.2-1.0); BLOOD UREA NITROGEN 18 mg/dL (7-18); CALCIUM 9.6 MG/DL (8.5-10.1); CARBON DIOXIDE 26 MMOL/L (21-32); CHLORIDE 105 MMOL/L (98-107); CREATININE 1.1 MG/DL (0.55-1.30); POTASSIUM 4.1 MMOL/L (3.5-5.1); SODIUM 139 MMOL/L (136-145)
[2020-09-09] MEDS ORDERED: Miralax 17gm pkt ORAL PRN (11:45)
[2020-09-09 12:00] VITALS: BP 104/62
--- NOTE | 2020-09-09 14:25 | Cardiac Electrophysiology PN ---
Assessment/Plan Assessment/Plan 1. [id number] myocardial infarction in setting of active methamphetamine use. Troponin levels are flat. EKG does not have any ST elevation. Continue aspirin, Lopressor and Lipitor. Urine-tox screen currently is positive for methamphetamine. Echocardiogram EF 60% Schedule stress test Friday 2. Hypertension. 3. Polysubstance abuse including methamphetamine. TAYLOR RN Subjective Subjective No CP or SOB.Troponin down Objective Last 24 Hour Vital Signs Date Time Temp Pulse Resp B/P (MAP) Pulse Ox O2 Delivery O2 Flow Rate FiO2 09/09/20 12:00 76 09/09/20 12:00 98.4 70 20 104/62 (76) 99 09/09/20 09:00 Room Air 09/09/20 08:33 89 131/72 09/09/20 08:00 87 09/09/20 08:00 97.5 89 18 131/72 (91) 97 09/09/20 04:00 91 09/09/20 04:00 97.5 83 20 106/63 (77) 97 09/09/20 00:00 97.4 89 20 129/75 (93) 97 09/08/20 21:00 Room Air 09/08/20 21:00 97 95/48 09/08/20 20:00 98.2 97 20 95/48 (64) 97 09/08/20 20:00 83 09/08/20 16:00 84 09/08/20 15:51 98.6 66 20 121/75 (90) 99 Intake and Output 09/08/20 09/09/20 19:00 07:00 Intake Total 960 ml 200 ml Balance 960 ml 200 ml Intake Oral 960 ml 200 ml Laboratory Tests Test 09/09/20 09:05 White Blood Count 5.1 K/UL (4.8-10.8) Red Blood Count 4.46 M/UL (4.70-6.10) L Hemoglobin 12.5 G/DL (14.2-18.0) L Hematocrit 38.6 % (42.0-52.0) L Mean Corpuscular Volume 87 FL (80-99) Mean Corpuscular Hemoglobin 28.0 PG (27.0-31.0) Mean Corpuscular Hemoglobin Concent 32.4 G/DL (32.0-36.0) Red Cell Distribution Width 13.4 % (11.6-14.8) Platelet Count 363 K/UL (150-450) Mean Platelet Volume 5.7 FL (6.5-10.1) L Neutrophils (%) (Auto) 72.3 % (45.0-75.0) Lymphocytes (%) (Auto) 16.3 % (20.0-45.0) L Monocytes (%) (Auto) 8.4 % (1.0-10.0) Eosinophils (%) (Auto) 1.2 % (0.0-3.0) Basophils (%) (Auto) 2.0 % (0.0-2.0) Erythrocyte Sedimentation Rate 57 MM/HR (0-20) H Sodium Level 139 MMOL/L (136-145) Potassium Level 4.1 MMOL/L (3.5-5.1) Chloride Level 105 MMOL/L (98-107) Carbon Dioxide Level 26 MMOL/L (21-32) Anion Gap 8 mmol/L (5-15) Blood Urea Nitrogen 18 mg/dL (7-18) Creatinine 1.1 MG/DL (0.55-1.30) Estimat Glomerular Filtration Rate > 60 mL/min (>60) Glucose Level 97 MG/DL (74-106) Calcium Level 9.6 MG/DL (8.5-10.1) Total Bilirubin 0.4 MG/DL (0.2-1.0) Aspartate Amino Transf (AST/SGOT) 32 U/L (15-37) Alanine Aminotransferase (ALT/SGPT) 64 U/L (12-78) Alkaline Phosphatase 192 U/L (46-116) H Troponin I 0.045 ng/mL (0.000-0.056) C-Reactive Protein, Quantitative 4.2 mg/dL (0.00-0.90) H Total Protein 7.6 G/DL (6.4-8.2) Albumin 3.0 G/DL (3.4-5.0) L Globulin 4.6 g/dL Albumin/Globulin Ratio 0.7 (1.0-2.7) L Objective HEAD AND NECK: no JVD. LUNGS: Coarse rhonchi. CARDIOVASCULAR: regular S1 and S2 with no gallop or murmur. ABDOMEN: Soft. EXTREMITIES: No pitting edema. Rafael Desai MD Sep 09, 2020 14:25
[2020-09-09] MEDS ORDERED: Lexiscan 0.4mg/5ml syringe IV PRN (14:30)
--- NOTE | 2020-09-09 14:39 | Surgery Progress Note ---
Surgery Progress Note Subjective Additional Comments alk phos slightly higher today no n/v no abd pain stable Objective Last 24 Hour Vital Signs Date Time Temp Pulse Resp B/P (MAP) Pulse Ox O2 Delivery O2 Flow Rate FiO2 09/09/20 12:00 76 09/09/20 12:00 98.4 70 20 104/62 (76) 99 09/09/20 09:00 Room Air 09/09/20 08:33 89 131/72 09/09/20 08:00 87 09/09/20 08:00 97.5 89 18 131/72 (91) 97 09/09/20 04:00 91 09/09/20 04:00 97.5 83 20 106/63 (77) 97 09/09/20 00:00 97.4 89 20 129/75 (93) 97 09/08/20 21:00 Room Air 09/08/20 21:00 97 95/48 09/08/20 20:00 98.2 97 20 95/48 (64) 97 09/08/20 20:00 83 09/08/20 16:00 84 09/08/20 15:51 98.6 66 20 121/75 (90) 99 I&O Intake and Output 09/08/20 09/09/20 19:00 07:00 Intake Total 960 ml 200 ml Balance 960 ml 200 ml Intake Oral 960 ml 200 ml Cardiovascular: RSR Respiratory: clear Abdomen: soft, flat, non-tender, present bowel sounds Extremities: no edema, no tenderness, no cyanosis Laboratory Tests Test 09/09/20 09:05 White Blood Count 5.1 K/UL (4.8-10.8) Red Blood Count 4.46 M/UL (4.70-6.10) L Hemoglobin 12.5 G/DL (14.2-18.0) L Hematocrit 38.6 % (42.0-52.0) L Mean Corpuscular Volume 87 FL (80-99) Mean Corpuscular Hemoglobin 28.0 PG (27.0-31.0) Mean Corpuscular Hemoglobin Concent 32.4 G/DL (32.0-36.0) Red Cell Distribution Width 13.4 % (11.6-14.8) Platelet Count 363 K/UL (150-450) Mean Platelet Volume 5.7 FL (6.5-10.1) L Neutrophils (%) (Auto) 72.3 % (45.0-75.0) Lymphocytes (%) (Auto) 16.3 % (20.0-45.0) L Monocytes (%) (Auto) 8.4 % (1.0-10.0) Eosinophils (%) (Auto) 1.2 % (0.0-3.0) Basophils (%) (Auto) 2.0 % (0.0-2.0) Erythrocyte Sedimentation Rate 57 MM/HR (0-20) H Sodium Level 139 MMOL/L (136-145) Potassium Level 4.1 MMOL/L (3.5-5.1) Chloride Level 105 MMOL/L (98-107) Carbon Dioxide Level 26 MMOL/L (21-32) Anion Gap 8 mmol/L (5-15) Blood Urea Nitrogen 18 mg/dL (7-18) Creatinine 1.1 MG/DL (0.55-1.30) Estimat Glomerular Filtration Rate > 60 mL/min (>60) Glucose Level 97 MG/DL (74-106) Calcium Level 9.6 MG/DL (8.5-10.1) Total Bilirubin 0.4 MG/DL (0.2-1.0) Aspartate Amino Transf (AST/SGOT) 32 U/L (15-37) Alanine Aminotransferase (ALT/SGPT) 64 U/L (12-78) Alkaline Phosphatase 192 U/L (46-116) H Troponin I 0.045 ng/mL (0.000-0.056) C-Reactive Protein, Quantitative 4.2 mg/dL (0.00-0.90) H Total Protein 7.6 G/DL (6.4-8.2) Albumin 3.0 G/DL (3.4-5.0) L Globulin 4.6 g/dL Albumin/Globulin Ratio 0.7 (1.0-2.7) L Plan Problems: (1) Constipation (2) Colitis (3) Flank pain Assessment & Plan: ABDOMEN: Liver: Unremarkable. No mass. Gallbladder and bile ducts: Contracted gallbladder. No calcified stones. No ductal dilation. Pancreas: Unremarkable. No mass. No ductal dilation. Spleen: Unremarkable. No splenomegaly. Adrenals: Unremarkable. No mass. Kidneys and ureters: Small left renal lesion, unchanged. Nonobstructing renal calculi bilaterally. Stomach and bowel: Moderate to large retained stool in the ascending and transverse colon. No mucosal thickening. PELVIS: Appendix: No findings to suggest acute appendicitis. Bladder: Unremarkable. No mass. Reproductive: Unremarkable as visualized. ABDOMEN and PELVIS: Intraperitoneal space: Unremarkable. No free air. No significant fluid collection. Bones/joints: No acute fracture. No dislocation. Soft tissues: Small fat-containing left inguinal hernia. Vasculature: Unremarkable. No abdominal aortic aneurysm. Lymph nodes: Small retroperitoneal lymph nodes, unchanged and nonspecific. non obstructive stones pain improved now hydration iv fluids no n/v diet okay cardiology input abd benign likely constipated bowel regimen (4) Chest pain (5) Insect bite (6) Amphetamine abuse (7) Elevated troponin (8) Stericoral Colitis Sunny Alberto Sep 09, 2020 14:39
[2020-09-09 16:00] VITALS: BP 102/54
[2020-09-09] MEDS: Docusate 100mg cap ORAL SCH (18:00)
--- NOTE | 2020-09-09 18:43 | Internal Med Progress Note ---
Subjective Date of Service: Sep 09, 2020 Physician Name CherylJosé Miguel Attending Physician Shan Silva MD Current Medications Medications (Trade) Dose Ordered Sig/Desmond Route PRN Reason Start Time Stop Time Status Last Admin Dose Admin Acetaminophen (Tylenol) 650 mg Q6H PRN ORAL Mild Pain (Pain Scale 1-3) 09/08/20 05:30 10/08/20 05:29 Acetaminophen/ Hydrocodone Bitart ([place] 5/325) 1 tab Q6H PRN ORAL Prn Chest Pain 09/08/20 05:30 09/15/20 05:29 Aspirin (Ecotrin) 81 mg DAILY ORAL 09/08/20 09:00 10/23/20 08:59 09/09/20 08:33 Atorvastatin Calcium (Lipitor) 40 mg BEDTIME ORAL 09/08/20 21:00 12/07/20 20:59 09/08/20 21:41 Docusate Sodium (Colace) 100 mg TWICE A DAY ORAL 09/09/20 18:00 10/09/20 17:59 09/09/20 18:00 Heparin Sodium (Porcine) (Heparin 5000 units/ml) 5,000 units EVERY 8 HOURS SUBQ 09/08/20 22:00 10/23/20 21:59 09/09/20 14:37 Metoprolol Tartrate (Lopressor) 25 mg Q12HR ORAL 09/08/20 09:00 12/07/20 08:59 09/09/20 08:33 Morphine Sulfate (Morphine Sulfate) 2 mg Q4H PRN IVP Severe Pain (Pain Scale 7-10) 09/08/20 05:30 09/15/20 05:29 Nitroglycerin (Ntg) 0.4 mg Q5M PRN SL Prn Chest Pain 09/08/20 05:30 10/08/20 05:29 Polyethylene Glycol (Miralax) 17 gm DAILY PRN ORAL Constipation 09/09/20 11:45 10/09/20 11:44 09/09/20 14:35 Regadenoson (Lexiscan) 0.4 mg ONCE PRN IV STRESS TEST 09/09/20 14:30 09/11/20 14:29 Allergies: Coded Allergies: CLOPIDOGREL (Verified Allergy, Unknown, 09/07/20) PENICILLINS (Verified Allergy, Unknown, 12/06/19) SULFA (SULFONAMIDE ANTIBIOTICS) (Verified Allergy, Unknown, 12/06/19) ROS Limited/Unobtainable: No Constitutional: Reports: no symptoms HEENT: Reports: no symptoms Cardiovascular: Reports: chest pain Respiratory: Reports: no symptoms Gastrointestinal/Abdominal: Reports: no symptoms Genitourinary: Reports: no symptoms Neurologic/Psychiatric: Reports: no symptoms; Denies: weakness Subjective 60 YO M with history of coronary artery disease, admitted with chest pain. Now NSTEMI. Cover for Int Dimitri-Dr Silva Objective Last Vital Signs Date Time Temp Pulse Resp B/P (MAP) Pulse Ox O2 Delivery O2 Flow Rate FiO2 09/09/20 16:00 85 09/09/20 16:00 98.0 18 102/54 (70) 98 09/09/20 09:00 Room Air Laboratory Tests Test 09/09/20 09:05 White Blood Count 5.1 K/UL (4.8-10.8) Red Blood Count 4.46 M/UL (4.70-6.10) L Hemoglobin 12.5 G/DL (14.2-18.0) L Hematocrit 38.6 % (42.0-52.0) L Mean Corpuscular Volume 87 FL (80-99) Mean Corpuscular Hemoglobin 28.0 PG (27.0-31.0) Mean Corpuscular Hemoglobin Concent 32.4 G/DL (32.0-36.0) Red Cell Distribution Width 13.4 % (11.6-14.8) Platelet Count 363 K/UL (150-450) Mean Platelet Volume 5.7 FL (6.5-10.1) L Neutrophils (%) (Auto) 72.3 % (45.0-75.0) Lymphocytes (%) (Auto) 16.3 % (20.0-45.0) L Monocytes (%) (Auto) 8.4 % (1.0-10.0) Eosinophils (%) (Auto) 1.2 % (0.0-3.0) Basophils (%) (Auto) 2.0 % (0.0-2.0) Erythrocyte Sedimentation Rate 57 MM/HR (0-20) H Sodium Level 139 MMOL/L (136-145) Potassium Level 4.1 MMOL/L (3.5-5.1) Chloride Level 105 MMOL/L (98-107) Carbon Dioxide Level 26 MMOL/L (21-32) Anion Gap 8 mmol/L (5-15) Blood Urea Nitrogen 18 mg/dL (7-18) Creatinine 1.1 MG/DL (0.55-1.30) Estimat Glomerular Filtration Rate > 60 mL/min (>60) Glucose Level 97 MG/DL (74-106) Calcium Level 9.6 MG/DL (8.5-10.1) Total Bilirubin 0.4 MG/DL (0.2-1.0) Aspartate Amino Transf (AST/SGOT) 32 U/L (15-37) Alanine Aminotransferase (ALT/SGPT) 64 U/L (12-78) Alkaline Phosphatase 192 U/L (46-116) H Troponin I 0.045 ng/mL (0.000-0.056) C-Reactive Protein, Quantitative 4.2 mg/dL (0.00-0.90) H Total Protein 7.6 G/DL (6.4-8.2) Albumin 3.0 G/DL (3.4-5.0) L Globulin 4.6 g/dL Albumin/Globulin Ratio 0.7 (1.0-2.7) L Intake and Output 09/08/20 09/09/20 19:00 07:00 Intake Total 960 ml 200 ml Balance 960 ml 200 ml Intake Oral 960 ml 200 ml Objective PHYSICAL EXAMINATION: GENERAL: The patient awake, responsive no acute distress. HEAD AND NECK: Pupils are equal and reactive to light. Extraocular movements intact. Neck was supple. No JVD. LUNGS: Good air entry. No wheezing or rhonchi. HEART: S1 and S2. Regular rhythm. No murmur or gallops. ABDOMEN: Soft, nondistended, nontender. Positive bowel sounds. EXTREMITIES: No cyanosis, clubbing, or edema. NEUROLOGIC: Cranial nerves II through XII grossly intact. Motor is 5/5 in all extremities. Gait is not assessed due to patient's status. RECTAL: Refused and deferred. PSYCHIATRIC: Mood and affect is intact. Assessment/Plan Assessment/Plan ASSESSMENT: 1. Chest pain, possible acute coronary syndrome. 2. Polysubstance abuse including amphetamine. 3. History of coronary artery disease, multiple PTCA with stent placement. 4. Hypertension. 5. Constipation. 6. Non ST elevted Myocardial infarction PLAN: 1. Admit the patient to telemetry. 2. Dr. Desai=cardiology. 3. serial cardiac enzymes=flat. 4. DVT Prophylaxis=Heparin Subcut. 5. Continue Lipitor 40 mg. 6. Code status is Full code. José Miguel Luna MD Sep 09, 2020 18:43
[2020-09-09 20:00] VITALS: BP 133/79
[2020-09-09] MEDS: Atorvastatin 20mg tab ORAL SCH (20:57)
[2020-09-10] VITALS: BP 125/75
[2020-09-10 04:00] VITALS: BP 130/69
[2020-09-10] MEDS: Heparin 5000 units/ml inj SUBQ SCH ×3 (06:10→22:02)
[2020-09-10 08:00] VITALS: BP 111/50
[2020-09-10] MEDS: Docusate 100mg cap ORAL SCH ×2 (08:11→17:19)
[2020-09-10] MEDS: Aspirin EC 81mg tab ORAL SCH (08:11)
[2020-09-10 09:37] LABS: BASOPHILS % (AUTO) 1.2 % (0.0-2.0); EOSINOPHILS % (AUTO) 1.2 % (0.0-3.0); HEMATOCRIT 38.6 % (42.0-52.0); HEMOGLOBIN 12.6 G/DL (14.2-18.0); LYMPHOCYTES % (AUTO) 17.1 % (20.0-45.0); MEAN CORPUSCULAR VOLUME 87 FL (80-99); MONOCYTES % (AUTO) 6.2 % (1.0-10.0); NEUTROPHILS % (AUTO) 74.2 % (45.0-75.0); PLATELET COUNT 313 K/UL (150-450); RED BLOOD COUNT 4.46 M/UL (4.70-6.10); RED CELL DISTRIBUTION WIDTH 13.4 % (11.6-14.8); WHITE BLOOD COUNT 6.2 K/UL (4.8-10.8)
[2020-09-10 10:01] LABS: ALANINE AMINOTRANSFERASE 49 U/L (12-78); ALBUMIN 2.9 G/DL (3.4-5.0); ALBUMIN/GLOBULIN RATIO 0.6 (1.0-2.7); ALKALINE PHOSPHATASE 185 U/L (46-116); ANION GAP 9 mmol/L (5-15); ASPARTATE AMINO TRANSFERASE 26 U/L (15-37); BILIRUBIN,TOTAL 0.3 MG/DL (0.2-1.0); BLOOD UREA NITROGEN 14 mg/dL (7-18); CALCIUM 9.4 MG/DL (8.5-10.1); CARBON DIOXIDE 25 MMOL/L (21-32); CHLORIDE 104 MMOL/L (98-107); CREATININE 1.2 MG/DL (0.55-1.30); POTASSIUM 3.6 MMOL/L (3.5-5.1); SODIUM 138 MMOL/L (136-145)
[2020-09-10 12:00] VITALS: BP 117/77
--- NOTE | 2020-09-10 12:46 | Surgery Progress Note ---
Surgery Progress Note Subjective Symptoms: improved, tolerating diet, voiding well, passing flatus, BM, pain decreased Objective Last 24 Hour Vital Signs Date Time Temp Pulse Resp B/P (MAP) Pulse Ox O2 Delivery O2 Flow Rate FiO2 09/10/20 12:00 98.8 75 20 117/77 (90) 97 09/10/20 12:00 73 09/10/20 09:00 Room Air 09/10/20 08:11 92 111/50 09/10/20 08:00 95 09/10/20 08:00 97.9 92 18 111/50 (70) 98 09/10/20 04:00 97.8 85 20 130/69 (89) 96 09/10/20 04:00 79 09/10/20 00:00 98.4 85 20 125/75 (92) 96 09/09/20 21:00 Room Air 09/09/20 20:57 71 133/79 09/09/20 20:00 98.4 71 20 133/79 (97) 96 09/09/20 20:00 85 09/09/20 16:00 85 09/09/20 16:00 98.0 81 18 102/54 (70) 98 I&O Intake and Output 09/09/20 09/10/20 19:00 07:00 Intake Total 720 ml 300 ml Balance 720 ml 300 ml Intake Oral 720 ml 300 ml # Voids 3 3 Cardiovascular: RSR Respiratory: clear Abdomen: soft, flat, non-tender, present bowel sounds, non-distended Extremities: no edema, no tenderness, no cyanosis Laboratory Tests Test 09/10/20 08:30 White Blood Count 6.2 K/UL (4.8-10.8) Red Blood Count 4.46 M/UL (4.70-6.10) L Hemoglobin 12.6 G/DL (14.2-18.0) L Hematocrit 38.6 % (42.0-52.0) L Mean Corpuscular Volume 87 FL (80-99) Mean Corpuscular Hemoglobin 28.3 PG (27.0-31.0) Mean Corpuscular Hemoglobin Concent 32.8 G/DL (32.0-36.0) Red Cell Distribution Width 13.4 % (11.6-14.8) Platelet Count 313 K/UL (150-450) Mean Platelet Volume 5.2 FL (6.5-10.1) L Neutrophils (%) (Auto) 74.2 % (45.0-75.0) Lymphocytes (%) (Auto) 17.1 % (20.0-45.0) L Monocytes (%) (Auto) 6.2 % (1.0-10.0) Eosinophils (%) (Auto) 1.2 % (0.0-3.0) Basophils (%) (Auto) 1.2 % (0.0-2.0) Sodium Level 138 MMOL/L (136-145) Potassium Level 3.6 MMOL/L (3.5-5.1) Chloride Level 104 MMOL/L (98-107) Carbon Dioxide Level 25 MMOL/L (21-32) Anion Gap 9 mmol/L (5-15) Blood Urea Nitrogen 14 mg/dL (7-18) Creatinine 1.2 MG/DL (0.55-1.30) Estimat Glomerular Filtration Rate > 60 mL/min (>60) Glucose Level 202 MG/DL (74-106) #H Calcium Level 9.4 MG/DL (8.5-10.1) Total Bilirubin 0.3 MG/DL (0.2-1.0) Aspartate Amino Transf (AST/SGOT) 26 U/L (15-37) Alanine Aminotransferase (ALT/SGPT) 49 U/L (12-78) Alkaline Phosphatase 185 U/L (46-116) H Total Protein 7.9 G/DL (6.4-8.2) Albumin 2.9 G/DL (3.4-5.0) L Globulin 5.0 g/dL Albumin/Globulin Ratio 0.6 (1.0-2.7) L Plan Problems: (1) Constipation (2) Colitis (3) Flank pain Assessment & Plan: ABDOMEN: Liver: Unremarkable. No mass. Gallbladder and bile ducts: Contracted gallbladder. No calcified stones. No ductal dilation. Pancreas: Unremarkable. No mass. No ductal dilation. Spleen: Unremarkable. No splenomegaly. Adrenals: Unremarkable. No mass. Kidneys and ureters: Small left renal lesion, unchanged. Nonobstructing renal calculi bilaterally. Stomach and bowel: Moderate to large retained stool in the ascending and transverse colon. No mucosal thickening. PELVIS: Appendix: No findings to suggest acute appendicitis. Bladder: Unremarkable. No mass. Reproductive: Unremarkable as visualized. ABDOMEN and PELVIS: Intraperitoneal space: Unremarkable. No free air. No significant fluid collection. Bones/joints: No acute fracture. No dislocation. Soft tissues: Small fat-containing left inguinal hernia. Vasculature: Unremarkable. No abdominal aortic aneurysm. Lymph nodes: Small retroperitoneal lymph nodes, unchanged and nonspecific. non obstructive stones pain improved now hydration iv fluids no n/v diet okay cardiology input abd benign likely constipated bowel regimen (4) Chest pain (5) Insect bite (6) Amphetamine abuse (7) Elevated troponin (8) Stericoral Colitis Sunny Alberto Sep 10, 2020 12:46
--- NOTE | 2020-09-10 15:50 | Internal Med Progress Note ---
Subjective Date of Service: Sep 10, 2020 Physician Name CherylJosé Miguel Attending Physician Shan Silva MD Current Medications Medications (Trade) Dose Ordered Sig/Desmond Route PRN Reason Start Time Stop Time Status Last Admin Dose Admin Acetaminophen (Tylenol) 650 mg Q6H PRN ORAL Mild Pain (Pain Scale 1-3) 09/08/20 05:30 10/08/20 05:29 Acetaminophen/ Hydrocodone Bitart ([place] 5/325) 1 tab Q6H PRN ORAL Prn Chest Pain 09/08/20 05:30 09/15/20 05:29 Aspirin (Ecotrin) 81 mg DAILY ORAL 09/08/20 09:00 10/23/20 08:59 09/10/20 08:11 Atorvastatin Calcium (Lipitor) 40 mg BEDTIME ORAL 09/08/20 21:00 12/07/20 20:59 09/09/20 20:57 Docusate Sodium (Colace) 100 mg TWICE A DAY ORAL 09/09/20 18:00 10/09/20 17:59 09/10/20 08:11 Heparin Sodium (Porcine) (Heparin 5000 units/ml) 5,000 units EVERY 8 HOURS SUBQ 09/08/20 22:00 10/23/20 21:59 09/10/20 14:23 Metoprolol Tartrate (Lopressor) 25 mg Q12HR ORAL 09/08/20 09:00 12/07/20 08:59 09/10/20 08:11 Morphine Sulfate (Morphine Sulfate) 2 mg Q4H PRN IVP Severe Pain (Pain Scale 7-10) 09/08/20 05:30 09/15/20 05:29 Nitroglycerin (Ntg) 0.4 mg Q5M PRN SL Prn Chest Pain 09/08/20 05:30 10/08/20 05:29 Polyethylene Glycol (Miralax) 17 gm DAILY PRN ORAL Constipation 09/09/20 11:45 10/09/20 11:44 09/09/20 14:35 Regadenoson (Lexiscan) 0.4 mg ONCE PRN IV STRESS TEST 09/09/20 14:30 09/11/20 14:29 Allergies: Coded Allergies: CLOPIDOGREL (Verified Allergy, Unknown, 09/07/20) PENICILLINS (Verified Allergy, Unknown, 12/06/19) SULFA (SULFONAMIDE ANTIBIOTICS) (Verified Allergy, Unknown, 12/06/19) ROS Limited/Unobtainable: No HEENT: Reports: no symptoms Cardiovascular: Reports: no symptoms Respiratory: Reports: no symptoms Gastrointestinal/Abdominal: Reports: no symptoms Genitourinary: Reports: no symptoms Neurologic/Psychiatric: Reports: no symptoms Subjective 60 YO M with history of coronary artery disease, admitted with chest pain. Now NSTEMI. Cover for Int Dimitri-Dr Silva Objective Last Vital Signs Date Time Temp Pulse Resp B/P (MAP) Pulse Ox O2 Delivery O2 Flow Rate FiO2 09/10/20 12:00 98.8 75 20 117/77 (90) 97 09/10/20 09:00 Room Air Laboratory Tests Test 09/10/20 08:30 White Blood Count 6.2 K/UL (4.8-10.8) Red Blood Count 4.46 M/UL (4.70-6.10) L Hemoglobin 12.6 G/DL (14.2-18.0) L Hematocrit 38.6 % (42.0-52.0) L Mean Corpuscular Volume 87 FL (80-99) Mean Corpuscular Hemoglobin 28.3 PG (27.0-31.0) Mean Corpuscular Hemoglobin Concent 32.8 G/DL (32.0-36.0) Red Cell Distribution Width 13.4 % (11.6-14.8) Platelet Count 313 K/UL (150-450) Mean Platelet Volume 5.2 FL (6.5-10.1) L Neutrophils (%) (Auto) 74.2 % (45.0-75.0) Lymphocytes (%) (Auto) 17.1 % (20.0-45.0) L Monocytes (%) (Auto) 6.2 % (1.0-10.0) Eosinophils (%) (Auto) 1.2 % (0.0-3.0) Basophils (%) (Auto) 1.2 % (0.0-2.0) Sodium Level 138 MMOL/L (136-145) Potassium Level 3.6 MMOL/L (3.5-5.1) Chloride Level 104 MMOL/L (98-107) Carbon Dioxide Level 25 MMOL/L (21-32) Anion Gap 9 mmol/L (5-15) Blood Urea Nitrogen 14 mg/dL (7-18) Creatinine 1.2 MG/DL (0.55-1.30) Estimat Glomerular Filtration Rate > 60 mL/min (>60) Glucose Level 202 MG/DL (74-106) #H Calcium Level 9.4 MG/DL (8.5-10.1) Total Bilirubin 0.3 MG/DL (0.2-1.0) Aspartate Amino Transf (AST/SGOT) 26 U/L (15-37) Alanine Aminotransferase (ALT/SGPT) 49 U/L (12-78) Alkaline Phosphatase 185 U/L (46-116) H Total Protein 7.9 G/DL (6.4-8.2) Albumin 2.9 G/DL (3.4-5.0) L Globulin 5.0 g/dL Albumin/Globulin Ratio 0.6 (1.0-2.7) L Intake and Output 09/09/20 09/10/20 19:00 07:00 Intake Total 720 ml 300 ml Balance 720 ml 300 ml Intake Oral 720 ml 300 ml # Voids 3 3 Objective PHYSICAL EXAMINATION: GENERAL: The patient awake, responsive no acute distress. HEAD AND NECK: Pupils are equal and reactive to light. Extraocular movements intact. Neck was supple. No JVD. LUNGS: Good air entry. No wheezing or rhonchi. HEART: S1 and S2. Regular rhythm. No murmur or gallops. ABDOMEN: Soft, nondistended, nontender. Positive bowel sounds. EXTREMITIES: No cyanosis, clubbing, or edema. NEUROLOGIC: Cranial nerves II through XII grossly intact. Motor is 5/5 in all extremities. Gait is not assessed due to patient's status. RECTAL: Refused and deferred. PSYCHIATRIC: Mood and affect is intact. Assessment/Plan Assessment/Plan ASSESSMENT: 1. Chest pain, possible acute coronary syndrome. 2. Polysubstance abuse including amphetamine. 3. History of coronary artery disease, multiple PTCA with stent placement. 4. Hypertension. 5. Constipation. 6. Non ST elevted Myocardial infarction PLAN: 1. Admit the patient to telemetry. 2. Dr. Desai=cardiology. 3. serial cardiac enzymes=flat. 4. DVT Prophylaxis=Heparin Subcut. 5. Continue Lipitor 40 mg. 6. Code status is Full code. José Miguel Luna MD Sep 10, 2020 15:49
[2020-09-10 15:52] VITALS: BP 120/71
[2020-09-10 20:00] VITALS: BP 139/80
[2020-09-10] MEDS: Atorvastatin 20mg tab ORAL SCH (20:47)
[2020-09-11] VITALS: BP 115/68
[2020-09-11 04:38] VITALS: BP 121/73
[2020-09-11] MEDS: Heparin 5000 units/ml inj SUBQ SCH ×2 (06:22→14:49)
[2020-09-11 07:31] LABS: BASOPHILS % (AUTO) 0.9 % (0.0-2.0); HEMATOCRIT 39.6 % (42.0-52.0); HEMOGLOBIN 13.3 G/DL (14.2-18.0); LYMPHOCYTES % (AUTO) 18.8 % (20.0-45.0); MEAN CORPUSCULAR VOLUME 86 FL (80-99); MONOCYTES % (AUTO) 7.8 % (1.0-10.0); NEUTROPHILS % (AUTO) 71.5 % (45.0-75.0); PLATELET COUNT 333 K/UL (150-450); RED BLOOD COUNT 4.63 M/UL (4.70-6.10); WHITE BLOOD COUNT 7.5 K/UL (4.8-10.8)
[2020-09-11 07:45] LABS: ALANINE AMINOTRANSFERASE 47 U/L (12-78); ALBUMIN/GLOBULIN RATIO 0.6 (1.0-2.7); ALKALINE PHOSPHATASE 187 U/L (46-116); ANION GAP 9 mmol/L (5-15); ASPARTATE AMINO TRANSFERASE 25 U/L (15-37); BILIRUBIN,TOTAL 0.4 MG/DL (0.2-1.0); BLOOD UREA NITROGEN 12 mg/dL (7-18); CALCIUM 9.7 MG/DL (8.5-10.1); CARBON DIOXIDE 27 MMOL/L (21-32); CHLORIDE 104 MMOL/L (98-107); CREATININE 1.1 MG/DL (0.55-1.30); POTASSIUM 4.2 MMOL/L (3.5-5.1); SODIUM 140 MMOL/L (136-145)
[2020-09-11 08:31] VITALS: BP 127/77
[2020-09-11] MEDS: Docusate 100mg cap ORAL SCH ×2 (08:33→17:08)
[2020-09-11] MEDS: Aspirin EC 81mg tab ORAL SCH (08:33)
--- NOTE | 2020-09-11 08:35 | Cardiac Electrophysiology PN ---
Assessment/Plan Assessment/Plan 1. [id number] myocardial infarction in setting of active methamphetamine use. Troponin levels are flat. EKG does not have any ST elevation. Continue aspirin, Lopressor and Lipitor. Urine-tox screen currently is positive for methamphetamine. Echo EF 60% Schedule stress test today is pending. 2. Hypertension. 3. Polysubstance abuse including methamphetamine. TAYLOR RN Subjective Subjective No CP or SOB.VSS. RN at bedside Objective Last 24 Hour Vital Signs Date Time Temp Pulse Resp B/P (MAP) Pulse Ox O2 Delivery O2 Flow Rate FiO2 09/11/20 08:31 98.1 87 20 127/77 (94) 97 09/11/20 08:03 85 09/11/20 04:38 98.1 90 20 121/73 (89) 96 09/11/20 04:00 86 09/11/20 00:00 98.1 84 20 115/68 (84) 96 09/10/20 21:00 Room Air 09/10/20 20:47 103 139/80 09/10/20 20:00 97.5 93 20 139/80 (99) 96 09/10/20 20:00 91 09/10/20 16:00 78 09/10/20 15:52 97.9 66 20 120/71 (87) 96 09/10/20 12:00 98.8 75 20 117/77 (90) 97 09/10/20 12:00 73 09/10/20 09:00 Room Air Intake and Output 09/10/20 09/11/20 19:00 07:00 Intake Total 480 ml 400 ml Balance 480 ml 400 ml Intake Oral 480 ml 400 ml # Voids 4 1 # Bowel Movements 1 2 Laboratory Tests Test 09/11/20 06:30 White Blood Count 7.5 K/UL (4.8-10.8) Red Blood Count 4.63 M/UL (4.70-6.10) L Hemoglobin 13.3 G/DL (14.2-18.0) L Hematocrit 39.6 % (42.0-52.0) L Mean Corpuscular Volume 86 FL (80-99) Mean Corpuscular Hemoglobin 28.8 PG (27.0-31.0) Mean Corpuscular Hemoglobin Concent 33.6 G/DL (32.0-36.0) Red Cell Distribution Width 13.0 % (11.6-14.8) Platelet Count 333 K/UL (150-450) Mean Platelet Volume 5.6 FL (6.5-10.1) L Neutrophils (%) (Auto) 71.5 % (45.0-75.0) Lymphocytes (%) (Auto) 18.8 % (20.0-45.0) L Monocytes (%) (Auto) 7.8 % (1.0-10.0) Eosinophils (%) (Auto) 1.0 % (0.0-3.0) Basophils (%) (Auto) 0.9 % (0.0-2.0) Erythrocyte Sedimentation Rate Pending Sodium Level 140 MMOL/L (136-145) Potassium Level 4.2 MMOL/L (3.5-5.1) Chloride Level 104 MMOL/L (98-107) Carbon Dioxide Level 27 MMOL/L (21-32) Anion Gap 9 mmol/L (5-15) Blood Urea Nitrogen 12 mg/dL (7-18) Creatinine 1.1 MG/DL (0.55-1.30) Estimat Glomerular Filtration Rate > 60 mL/min (>60) Glucose Level 104 MG/DL (74-106) Calcium Level 9.7 MG/DL (8.5-10.1) Total Bilirubin 0.4 MG/DL (0.2-1.0) Aspartate Amino Transf (AST/SGOT) 25 U/L (15-37) Alanine Aminotransferase (ALT/SGPT) 47 U/L (12-78) Alkaline Phosphatase 187 U/L (46-116) H C-Reactive Protein, Quantitative 6.6 mg/dL (0.00-0.90) H Total Protein 8.3 G/DL (6.4-8.2) H Albumin 3.0 G/DL (3.4-5.0) L Globulin 5.3 g/dL Albumin/Globulin Ratio 0.6 (1.0-2.7) L Objective HEAD AND NECK: no JVD. LUNGS: Coarse rhonchi. CARDIOVASCULAR: Regular S1 and S2 with no gallop or murmur. ABDOMEN: Soft. EXTREMITIES: No pitting edema. Rafael Desai MD Sep 11, 2020 08:35
[2020-09-11 12:28] VITALS: BP 114/61
--- NOTE | 2020-09-11 12:54 | Internal Med Progress Note ---
Subjective Date of Service: Sep 11, 2020 Physician Name LunaJosé Miguel Attending Physician Shan Silva MD Current Medications Medications (Trade) Dose Ordered Sig/Desmond Route PRN Reason Start Time Stop Time Status Last Admin Dose Admin Acetaminophen (Tylenol) 650 mg Q6H PRN ORAL Mild Pain (Pain Scale 1-3) 09/08/20 05:30 10/08/20 05:29 Acetaminophen/ Hydrocodone Bitart (Sabin 5/325) 1 tab Q6H PRN ORAL Prn Chest Pain 09/08/20 05:30 09/15/20 05:29 Aspirin (Ecotrin) 81 mg DAILY ORAL 09/08/20 09:00 10/23/20 08:59 09/10/20 08:11 Atorvastatin Calcium (Lipitor) 40 mg BEDTIME ORAL 09/08/20 21:00 12/07/20 20:59 09/10/20 20:47 Docusate Sodium (Colace) 100 mg TWICE A DAY ORAL 09/09/20 18:00 10/09/20 17:59 09/10/20 17:19 Heparin Sodium (Porcine) (Heparin 5000 units/ml) 5,000 units EVERY 8 HOURS SUBQ 09/08/20 22:00 10/23/20 21:59 09/11/20 06:22 Metoprolol Tartrate (Lopressor) 25 mg Q12HR ORAL 09/08/20 09:00 12/07/20 08:59 09/10/20 20:47 Morphine Sulfate (Morphine Sulfate) 2 mg Q4H PRN IVP Severe Pain (Pain Scale 7-10) 09/08/20 05:30 09/15/20 05:29 Nitroglycerin (Ntg) 0.4 mg Q5M PRN SL Prn Chest Pain 09/08/20 05:30 10/08/20 05:29 Polyethylene Glycol (Miralax) 17 gm DAILY PRN ORAL Constipation 09/09/20 11:45 10/09/20 11:44 09/09/20 14:35 Regadenoson (Lexiscan) 0.4 mg ONCE PRN IV STRESS TEST 09/09/20 14:30 09/11/20 14:29 Allergies: Coded Allergies: CLOPIDOGREL (Verified Allergy, Unknown, 09/07/20) PENICILLINS (Verified Allergy, Unknown, 12/06/19) SULFA (SULFONAMIDE ANTIBIOTICS) (Verified Allergy, Unknown, 12/06/19) ROS Limited/Unobtainable: No Constitutional: Reports: no symptoms HEENT: Reports: no symptoms Cardiovascular: Reports: chest pain Respiratory: Reports: no symptoms Gastrointestinal/Abdominal: Reports: no symptoms Genitourinary: Reports: no symptoms Neurologic/Psychiatric: Reports: no symptoms Subjective 60 YO M with history of coronary artery disease, admitted with chest pain. Now NSTEMI. Cover for Int Med-Dr Silva. Await cardiac stress test Objective Last Vital Signs Date Time Temp Pulse Resp B/P (MAP) Pulse Ox O2 Delivery O2 Flow Rate FiO2 09/11/20 12:29 101 09/11/20 12:28 98.1 20 114/61 (78) 95 09/11/20 09:06 Room Air Laboratory Tests Test 09/11/20 06:30 White Blood Count 7.5 K/UL (4.8-10.8) Red Blood Count 4.63 M/UL (4.70-6.10) L Hemoglobin 13.3 G/DL (14.2-18.0) L Hematocrit 39.6 % (42.0-52.0) L Mean Corpuscular Volume 86 FL (80-99) Mean Corpuscular Hemoglobin 28.8 PG (27.0-31.0) Mean Corpuscular Hemoglobin Concent 33.6 G/DL (32.0-36.0) Red Cell Distribution Width 13.0 % (11.6-14.8) Platelet Count 333 K/UL (150-450) Mean Platelet Volume 5.6 FL (6.5-10.1) L Neutrophils (%) (Auto) 71.5 % (45.0-75.0) Lymphocytes (%) (Auto) 18.8 % (20.0-45.0) L Monocytes (%) (Auto) 7.8 % (1.0-10.0) Eosinophils (%) (Auto) 1.0 % (0.0-3.0) Basophils (%) (Auto) 0.9 % (0.0-2.0) Erythrocyte Sedimentation Rate 41 MM/HR (0-20) H Sodium Level 140 MMOL/L (136-145) Potassium Level 4.2 MMOL/L (3.5-5.1) Chloride Level 104 MMOL/L (98-107) Carbon Dioxide Level 27 MMOL/L (21-32) Anion Gap 9 mmol/L (5-15) Blood Urea Nitrogen 12 mg/dL (7-18) Creatinine 1.1 MG/DL (0.55-1.30) Estimat Glomerular Filtration Rate > 60 mL/min (>60) Glucose Level 104 MG/DL (74-106) Calcium Level 9.7 MG/DL (8.5-10.1) Total Bilirubin 0.4 MG/DL (0.2-1.0) Aspartate Amino Transf (AST/SGOT) 25 U/L (15-37) Alanine Aminotransferase (ALT/SGPT) 47 U/L (12-78) Alkaline Phosphatase 187 U/L (46-116) H C-Reactive Protein, Quantitative 6.6 mg/dL (0.00-0.90) H Total Protein 8.3 G/DL (6.4-8.2) H Albumin 3.0 G/DL (3.4-5.0) L Globulin 5.3 g/dL Albumin/Globulin Ratio 0.6 (1.0-2.7) L Intake and Output 09/10/20 09/11/20 19:00 07:00 Intake Total 480 ml 400 ml Balance 480 ml 400 ml Intake Oral 480 ml 400 ml # Voids 4 1 # Bowel Movements 1 2 Objective PHYSICAL EXAMINATION: GENERAL: The patient awake, responsive no acute distress. HEAD AND NECK: Pupils are equal and reactive to light. Extraocular movements intact. Neck was supple. No JVD. LUNGS: Good air entry. No wheezing or rhonchi. HEART: S1 and S2. Regular rhythm. No murmur or gallops. ABDOMEN: Soft, nondistended, nontender. Positive bowel sounds. EXTREMITIES: No cyanosis, clubbing, or edema. NEUROLOGIC: Cranial nerves II through XII grossly intact. Motor is 5/5 in all extremities. Gait is not assessed due to patient's status. RECTAL: Refused and deferred. PSYCHIATRIC: Mood and affect is intact. Assessment/Plan Assessment/Plan ASSESSMENT: 1. Chest pain, possible acute coronary syndrome. 2. Polysubstance abuse including amphetamine. 3. History of coronary artery disease, multiple PTCA with stent placement. 4. Hypertension. 5. Constipation. 6. Non ST elevted Myocardial infarction PLAN: 1. Admit the patient to telemetry. 2. Dr. Desai=cardiology. 3. serial cardiac enzymes=flat. 4. DVT Prophylaxis=Heparin Subcut. 5. Continue Lipitor 40 mg. 6. Code status is Full code. 7. Await Cardiac stress test 09/11/20 José Miguel Luna MD Sep 11, 2020 12:54
--- NOTE | 2020-09-11 15:16 | Surgery Progress Note ---
Surgery Progress Note Subjective Symptoms: improved, pain absent, tolerating diet, passing flatus Objective Last 24 Hour Vital Signs Date Time Temp Pulse Resp B/P (MAP) Pulse Ox O2 Delivery O2 Flow Rate FiO2 09/11/20 12:29 101 09/11/20 12:28 98.1 96 20 114/61 (78) 95 09/11/20 09:06 Room Air 09/11/20 08:33 87 127/77 09/11/20 08:31 98.1 87 20 127/77 (94) 97 09/11/20 08:03 85 09/11/20 04:38 98.1 90 20 121/73 (89) 96 09/11/20 04:00 86 09/11/20 00:00 98.1 84 20 115/68 (84) 96 09/10/20 21:00 Room Air 09/10/20 20:47 103 139/80 09/10/20 20:00 97.5 93 20 139/80 (99) 96 09/10/20 20:00 91 09/10/20 16:00 78 09/10/20 15:52 97.9 66 20 120/71 (87) 96 I&O Intake and Output 0 09/10/20 09/11/20 19:00 07:00 Intake Total 480 ml 400 ml Balance 480 ml 400 ml Intake Oral 480 ml 400 ml # Voids 4 1 # Bowel Movements 1 2 Dressing: saturated Wound: clean Cardiovascular: RSR Respiratory: clear Abdomen: soft, flat, non-tender, present bowel sounds, non-distended Extremities: no edema, no tenderness, no cyanosis Laboratory Tests Test 09/11/20 06:30 White Blood Count 7.5 K/UL (4.8-10.8) Red Blood Count 4.63 M/UL (4.70-6.10) L Hemoglobin 13.3 G/DL (14.2-18.0) L Hematocrit 39.6 % (42.0-52.0) L Mean Corpuscular Volume 86 FL (80-99) Mean Corpuscular Hemoglobin 28.8 PG (27.0-31.0) Mean Corpuscular Hemoglobin Concent 33.6 G/DL (32.0-36.0) Red Cell Distribution Width 13.0 % (11.6-14.8) Platelet Count 333 K/UL (150-450) Mean Platelet Volume 5.6 FL (6.5-10.1) L Neutrophils (%) (Auto) 71.5 % (45.0-75.0) Lymphocytes (%) (Auto) 18.8 % (20.0-45.0) L Monocytes (%) (Auto) 7.8 % (1.0-10.0) Eosinophils (%) (Auto) 1.0 % (0.0-3.0) Basophils (%) (Auto) 0.9 % (0.0-2.0) Erythrocyte Sedimentation Rate 41 MM/HR (0-20) H Sodium Level 140 MMOL/L (136-145) Potassium Level 4.2 MMOL/L (3.5-5.1) Chloride Level 104 MMOL/L (98-107) Carbon Dioxide Level 27 MMOL/L (21-32) Anion Gap 9 mmol/L (5-15) Blood Urea Nitrogen 12 mg/dL (7-18) Creatinine 1.1 MG/DL (0.55-1.30) Estimat Glomerular Filtration Rate > 60 mL/min (>60) Glucose Level 104 MG/DL (74-106) Calcium Level 9.7 MG/DL (8.5-10.1) Total Bilirubin 0.4 MG/DL (0.2-1.0) Aspartate Amino Transf (AST/SGOT) 25 U/L (15-37) Alanine Aminotransferase (ALT/SGPT) 47 U/L (12-78) Alkaline Phosphatase 187 U/L (46-116) H C-Reactive Protein, Quantitative 6.6 mg/dL (0.00-0.90) H Total Protein 8.3 G/DL (6.4-8.2) H Albumin 3.0 G/DL (3.4-5.0) L Globulin 5.3 g/dL Albumin/Globulin Ratio 0.6 (1.0-2.7) L Plan Problems: (1) Constipation (2) Colitis (3) Flank pain Assessment & Plan: ABDOMEN: Liver: Unremarkable. No mass. Gallbladder and bile ducts: Contracted gallbladder. No calcified stones. No ductal dilation. Pancreas: Unremarkable. No mass. No ductal dilation. Spleen: Unremarkable. No splenomegaly. Adrenals: Unremarkable. No mass. Kidneys and ureters: Small left renal lesion, unchanged. Nonobstructing renal calculi bilaterally. Stomach and bowel: Moderate to large retained stool in the ascending and transverse colon. No mucosal thickening. PELVIS: Appendix: No findings to suggest acute appendicitis. Bladder: Unremarkable. No mass. Reproductive: Unremarkable as visualized. ABDOMEN and PELVIS: Intraperitoneal space: Unremarkable. No free air. No significant fluid collection. Bones/joints: No acute fracture. No dislocation. Soft tissues: Small fat-containing left inguinal hernia. Vasculature: Unremarkable. No abdominal aortic aneurysm. Lymph nodes: Small retroperitoneal lymph nodes, unchanged and nonspecific. non obstructive stones pain improved now hydration iv fluids no n/v diet okay cardiology input abd benign likely constipated bowel regimen (4) Chest pain (5) Insect bite (6) Amphetamine abuse (7) Elevated troponin (8) Stericoral Colitis Sunny Alberto Sep 11, 2020 15:16
[2020-09-11 16:03] VITALS: BP 124/78
--- NOTE | 2020-09-11 16:29 | Diagnostic Imaging Report ---
Indications: Chest pain Technique: Single day single isotope protocol utilized. Initially, resting images obtained using IV administration 10.1 millicuries 99m technetium Myoview. Subsequently, patient underwent lexiscan stress testing. See cardiology report for details. During Lexiscan infusion, IV administration 30.3 mCi 99m technetium Myoview. SPECT and planar images obtained. SPECT images gated to 8 phases of the cardiac cycle were also obtained, and reformatted into cine images for evaluation of ejection fraction. Comparison: none Findings: Per cardiology report, patient experienced nausea during infusion. Per cardiology report, resting EKG demonstrates normal sinus rhythm. Presence or absence of ST changes during infusion is not described on the cardiology report. Imaging demonstrates a sizable area of decreased activity in the inferior wall which is slightly smaller on the resting images.. Calculated post stress ejection fraction 69%. Gated images demonstrate no evidence of wall motion abnormality Impression: Nonischemic clinical response to pharmacologic stress, per cardiology report Nonischemic electrocardiographic response to pharmacologic stress, per cardiology report Calculated post stress ejection fraction 69%. No wall motion abnormality demonstrated Imaging findings are suggestive of a sizable inferior wall infarct with a smaller area of oswald-infarct ischemia. However, given the normal ejection fraction and lack of inferior wall motion abnormality, the possibility that this could represent an attenuation artifact should also be considered.
--- NOTE | 2020-09-12 11:52 | Cardiology Report ---
APPROVED REPORT EXAM: Two-dimensional and M-mode echocardiogram with Doppler and color Doppler. INDICATION Chest Pain M-Mode DIMENSIONS IVSd1.3 (0.7-1.1cm)Left Atrium (MM)3.1 (1.6-4.0cm) LVDd5.1 (3.5-5.6cm)Aortic Root3.0 (2.0-3.7cm) PWd0.9 (0.7-1.1cm)Aortic Cusp Exc.1.7 (1.5-2.0cm) IVSs1.7 cmEPSS0.4 (>1.0cm) LVDs3.5 (2.5-4.0cm) PWs1.9 cm <Conclusion> Normal left ventricular chamber size, systolic function and wall motion. Left ventricular ejection fraction estimated to be 60 %. Borderline left ventricular hypertrophy. Anterior Echo-free space, may be due to pericardial fat or effusion. All other cardiac chamber sizes are within normal limits. Moderate focal aortic valve sclerosis with adequate cusp excursion. Thickened mitral valve leaflets with normal excursion. Mitral annulus and aortic root calcification. Pulmonic valve not well visualized. Normal tricuspid valve structure. IVC measures at 2.0 cm with physiologic collapse. A color flow and spectral Doppler study was performed and revealed: Trace aortic regurgitation. Trace to mild mitral regurgitation. Mitral diastolic velocities suggest reduced left ventricular relaxation c/w mild diastolic dysfunction (Grade I). Trace tricuspid regurgitation. Tricuspid systolic velocities suggests peak right ventricular systolic pressure of 16 mmHg. Trace pulmonic regurgitation present.
--- NOTE | 2020-09-12 12:04 | Cardiology Report ---
APPROVED REPORT EKG Measurement Heart [id number] <Conclusion> Normal sinus rhythm Inferior infarct, age undetermined Abnormal ECG
--- NOTE | 2020-09-12 12:08 | Cardiology Report ---
APPROVED REPORT EKG Measurement Heart [id number] <Conclusion> Normal sinus rhythm Moderate voltage criteria for LVH, may be normal variant ST elevation, consider early repolarization, pericarditis, or injury Abnormal ECG
--- NOTE | 2020-09-14 10:13 | Discharge Summary ---
Discharge Summary Discharge Summary _ Date of admission: 09/07/2020 Patient left AGAINST MEDICAL ADVICE on 09/11/2020 History of Present Illness and Brief Hospital Course Mr. Morales with past medical history of CAD s/p stent, and hypertension, who presented to ED for evaluation of right flank pain and chest pressure. Patient reported that he was told he had a heart attack at another hospital, possibly [facility] according to the patient. Patient was recommended to undergo catheterization and placing a stent. Patient signed out and presented to [facility] for a second opinion. Patient was initially treated with aspirin, nitroglycerin and nitroglycerin paste. EKG revealed sinus tachycardia and nonspecific ST-T wave changes. There was no ST elevation. Chest x-ray was unremarkable. His urine toxicology screening was positive for opiates and amphetamines. Of note, the toxicology screen was performed before administering morphine. Given his right flank pain, CT abdomen/pelvis was ordered which revealed nonobstructing bilateral renal calculi, and nonspecific bowel gas p attern with moderate to large retained stool. Patient clinically improved in ER but still required admission to the hospital for observation and evaluation by frog shaker. Given the flank pain, patient was evaluated by a surgeon. Patient's abdomen was largely benign. Patient was likely constipated. Bowel regimen, hydration with IV fluids were initiated. His pain improved. Patient had non-STEMI in setting of active methamphetamine use. His troponin levels were flat. He was instructed to continue aspirin, Lopressor and Lipitor. 2D echocardiogram revealed ejection fraction of 60%. Stress test revealed nonischemic clinical response to pharmacologic stress. Patient requested to be released from the hospital. Patient was educated on the risks on leaving AMA. Patient left the hospital AMA. Consultants: Cardiology Dr. Desai Surgery Dr. Alberto Final diagnoses Non-STEMI Hypertension Polysubstance abuse, opiates, amphetamine Constipation History of colitis History of CAD, s/p 7 stent placement Nonobstructing renal calculi I have been assigned to dictate discharge summary for this account. I was not involved in the patient's management Ab [place] Sep 14, 2020 10:13
== END 2020-09-11 19:05 | disposition left against medical advice (07) | DRG 190 ==
LOC: EMR 22:14 → 2E 22:37 → EDBEDREQ 09-08 00:27 → 2E 09-08 02:05
DX: I21.4 Non-ST elevation (NSTEMI) myocardial infarction (principal); I25.10 Atherosclerotic heart disease of native coronary artery without angina pectoris; Z95.5 Presence of coronary angioplasty implant and graft; K59.00 Constipation, unspecified; F14.10 Cocaine abuse, uncomplicated; K52.9 Noninfective gastroenteritis and colitis, unspecified; Z88.0 Allergy status to penicillin; Z88.2 Allergy status to sulfonamides; Z88.8 Allergy status to other drugs, medicaments and biological substances; F17.200 Nicotine dependence, unspecified, uncomplicated; F19.10 Other psychoactive substance abuse, uncomplicated; I10 Essential (primary) hypertension; F15.10 Other stimulant abuse, uncomplicated; N20.0 Calculus of kidney
CPT/HCPCS: 36415; 71045; 74177; 78452; 80053; 80061; 80307; 81003; 82550; 83880; 84443; 84484; 85025; 85610; 85651; 85730; 86140; 93005; 93017; 93306; 96372; 96374; 96375; 99291; J2785